=== PATIENT | female | born 1980 | race Caucasian/White ===

== ENCOUNTER 2016-11-30 16:10 | Emergency (ER) | payer OTHER ==
--- NOTE | 2016-11-30 16:47 | ED CLINICAL REPORT ---
Clinical Report - Physicians/Mid Levels [facility] [address] [place] [address] 11/30/2016 16:12 Patient: ROLANDO GARBER Time Seen: 16:21; upon arrival, initial patient contact, initial documentation, patient care assumed. Arrived- By private vehicle. Historian- patient. HISTORY OF PRESENT ILLNESS Chief Complaint: TENDER AREA. This started about 5 days ago and is still present. It has been located in the left axilla. No cause has been identified. (pt saw here pcp 11/28, has appt with oncologist Monday, here for US, would like imaging done today so she has films to take to specialist, her pcp scheduled her for us in December). Similar symptoms previously: Frequently, worse. ( had surgery and lymph nodes removed on ). Recent medical care: The patient was seen recently in the office. ( saw pcp, placed on abx and pain meds). REVIEW OF SYSTEMS No fever. All systems otherwise negative, except as recorded above. PAST HISTORY See nurses notes. PROBLEMS: Pyelonephritis. UTI - Urinary Tract Infection. Wound Infection. Headache. Abscess. Systemic Lupus Erythematosus. Hidradenitis Suppurativa. Ureterolithiasis. Lifestyle / Substance Problems. Fibromyalgia. Cervical Strain. Seizure Disorder. LNMP - Last Normal Menstrual Period. --16:31 Migdalia Herndon. ADDITIONAL SURGERIES: . Hysterectomy. Lithotripsy. Previous Abdominal Surgery. Sweat gland removal. Tubal Ligation. --16:31 Migdalia Herndon. SOCIAL HISTORY Light tobacco smoker. Occasional alcohol use. No drug use. No recent travel. Is a local resident. FAMILY HISTORY Cancer in first-degree relative (mother). ADDITIONAL NOTES The nursing notes have been reviewed with agreement regarding the chief complaint, HPI, ROS, PMH and patient medications and allergies. PHYSICAL EXAM Vital Signs: 11/30/2016 16:27 BP: 153/98. HR: 85. RR: 16. O2 saturation: 100%. Temp: 98.8 F. Have been reviewed as abnormal and appear to be correct. Hypertensive. Heart rate normal. Respiratory rate normal. Temperature normal. Oxygen saturation normal. Appearance: Alert. Oriented X3. No acute distress. Neck: Neck supple. (x2 pea size lymph nodes palpated to L axilla, no erythema, no swelling, no warmth, pt c/o of pain and tenderness). CVS: Normal heart rate and rhythm. Heart sounds normal. Respiratory: No respiratory distress. Breath sounds normal. Chest nontender. Skin: Skin warm and dry. Normal skin color. No rash. Normal skin turgor. Extremities: Normal external inspection. Extremities nontender. Neuro: Oriented X 3. No motor deficit. No sensory deficit. PROGRESS AND PROCEDURES Course of Care: 16:53 11/30/16. pt has ozzie for some narcs and #7 er visits, see report for full details. Patient counseled in person regarding the patient's stable condition and diagnosis. 16:47. Differential Diagnosis: Other possible considerations: abscess, suppuritiva, folliculitis, mrsa, lymphoma. Above considerations are based on history and physical exam. Differential diagnosis was discussed with patient. Disposition: Discharged home in good and unchanged condition (16:47). Condition: good and stable. CLINICAL IMPRESSION (Enlarged Lymph Nodes L Axilla). INSTRUCTIONS Warnings: GENERAL WARNINGS: Return or contact your physician immediately if your condition worsens or changes unexpectedly, if not improving as expected, or if other problems arise. Specifically return if problem worsens. Prescription Medications: [place] 5 mg / 325 mg tablets: take 1 orally every 6 hours as needed for pain. Dispense five (5). No refill. Follow-up: Follow up with an oncologist Monday as scheduled even if well. Summary of care provided to patient. Screening today revealed the patient's blood pressure to be in the hypertensive range. The patient should follow up with a primary care provider for blood pressure management. Understanding of the discharge instructions verbalized by patient. (Electronically signed by Elinor Dumas A.R.N.P. 11/30/2016 17:05)
--- NOTE | 2016-11-30 16:47 | ED NURSING NOTES ---
Clinical Report - Nurses [facility] [address], [place] [address] 11/30/2016 16:12 Patient: ROLANDO GARBER TRIAGE Triage time 1620. Acuity: LEVEL 3. Chief Complaint: RIGHT UPPER EXTREMITY PAIN and SWELLING. Alert. No acute distress. --16:32 Migdalia Herndon 16:27 11/30/16. BP: 153/98. HR: 85. RR: 16. O2 saturation: 100%. Temp: 98.8 F. Pain level now 05/25. --16:32 Migdalia Herndon. Weight: 75.7 kg. Height/Length: 63 inches. BMI: 29.6. --16:27 Migdalia Herndon. Medications Gabapentin Oral. --16:29 Migdalia Herndon Plaquenil Oral. --16:29 Migdalia Herndon OxyCODONE HCl Oral. --16:29 Migdalia Herndon Clindacin-P External. --16:30 Migdalia Herndon. Allergies Penicillin. --16:30 Migdalia Herndon Compazine. --16:30 Migdalia Herndon Ultram. --16:30 Migdalia Herndon Sulfa Antibiotics. --16:30 Migdalia Herndon. History Arrived by private vehicle. Historian: patient. Accompanied by friend. No injury occurred. This occurred (5 days ago). ( Pt with lumps in left armpit, pain, saw PCP, placed on anitbiotic and pain med, referred to oncology, pain swelling is worse and now in breast, PCP told pt to come in for imaging). 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 SOCIAL HX: Light tobacco smoker (cigarette)- less than 1/2 a pack per day. Occasional alcohol use. --16:32 Migdalia Herndon. PROBLEMS: Pyelonephritis. UTI - Urinary Tract Infection. Wound Infection. Headache. Abscess. Systemic Lupus Erythematosus. Hidradenitis Suppurativa. Ureterolithiasis. Lifestyle / Substance Problems. Fibromyalgia. Cervical Strain. Seizure Disorder. LNMP - Last Normal Menstrual Period. --16:31 Migdalia Herndon. ADDITIONAL SURGERIES: . Hysterectomy. Lithotripsy. Previous Abdominal Surgery. Sweat gland removal. Tubal Ligation. --16:31 Migdalia Herndon. Interventions ID band on patient. To treatment room. --16:32 Migdalia Herndon. PHYSICAL ASSESSMENT Ambulatory to room. GENERAL / NEURO / PSYCH: Oriented X 4. Alert. Acute distress is noted. Appears in pain. EXTREMITIES: Limited ROM present. Increased warmth on the extremities. Upper extremity edema. Neuro-vascular status intact to the extremity. SKIN: Skin intact. Skin is warm and dry. --16:33 Migdalia Herndon. NURSING PROGRESS NOTES 17:00. The patient is resting quietly. Overall patient status is the same- she states feels the same. GENERAL / NEURO / PSYCH: Alert. Oriented X 4. RESPIRATORY: No respiratory distress. SKIN: Skin is warm and dry. --17:03 Abigail Ng R.N. DISPOSITION / DISCHARGE Departure time: 1700. Condition at departure: unchanged. No learning barriers present. Discharge instructions provided and reviewed with the patient. Reviewed medication(s). Prescription(s) given to the patient. Patient verbalized understanding. Written instructions provided in Marshallese. The patient was discharged home and accompanied by service delivery analyst. She left the Emergency Department ambulatory and via private vehicle. FALL RISK ASSESSMENT: Fall risk assessment completed. No fall risk identified. --17:05 Abigail Ng R.N. 17:02 11/30/16. BP: 152/91. HR: 80. RR: 18. O2 saturation: 99% on room air. Pain level now: 05/25. --17:05 Abigail Ng R.N. Locked/Released at 11/30/2016 17:05 by Abigail Ng R.N.
--- NOTE | 2016-11-30 16:47 | ED NURSING NOTES ---
Clinical Report - Nurses [facility] [address], [place] [address] 11/30/2016 16:12 Patient: ROLANDO GARBER TRIAGE Triage time 1620. Acuity: LEVEL 3. Chief Complaint: RIGHT UPPER EXTREMITY PAIN and SWELLING. Alert. No acute distress. --16:32 Migdalia Herndon 16:27 11/30/16. BP: 153/98. HR: 85. RR: 16. O2 saturation: 100%. Temp: 98.8 F. Pain level now 05/25. --16:32 Migdalia Herndon. Weight: 75.7 kg. Height/Length: 63 inches. BMI: 29.6. --16:27 Migdalia Herndon. Medications Gabapentin Oral. --16:29 Migdalia Herndon Plaquenil Oral. --16:29 Migdalia Herndon OxyCODONE HCl Oral. --16:29 Migdalia Herndon Clindacin-P External. --16:30 Migdalia Herndon. Allergies Penicillin. --16:30 Migdalia Herndon Compazine. --16:30 Migdalia Herndon Ultram. --16:30 Migdalia Herndon Sulfa Antibiotics. --16:30 Migdalia Herndon. History Arrived by private vehicle. Historian: patient. Accompanied by friend. No injury occurred. This occurred (5 days ago). ( Pt with lumps in left armpit, pain, saw PCP, placed on anitbiotic and pain med, referred to oncology, pain swelling is worse and now in breast, PCP told pt to come in for imaging). Treatment PROPERTY AND EQUIPMENT CLERK: (clindamycin topical, oxycodone). SOCIAL HX: Light tobacco smoker (cigarette)- less than 1/2 a pack per day. Occasional alcohol use. --16:32 Migdalia Herndon. PROBLEMS: Pyelonephritis. UTI - Urinary Tract Infection. Wound Infection. Headache. Abscess. Systemic Lupus Erythematosus. Hidradenitis Suppurativa. Ureterolithiasis. Lifestyle / Substance Problems. Fibromyalgia. Cervical Strain. Seizure Disorder. LNMP - Last Normal Menstrual Period. --16:31 Migdalia Herndon. ADDITIONAL SURGERIES: . Hysterectomy. Lithotripsy. Previous Abdominal Surgery. Sweat gland removal. Tubal Ligation. --16:31 Migdalia Herndon. Interventions ID band on patient. To treatment room. --16:32 Migdalia Herndon. PHYSICAL ASSESSMENT Ambulatory to room. GENERAL / NEURO / PSYCH: Oriented X 4. Alert. Acute distress is noted. Appears in pain. EXTREMITIES: Limited ROM present. Increased warmth on the extremities. Upper extremity edema. Neuro-vascular status intact to the extremity. SKIN: Skin intact. Skin is warm and dry. --16:33 Migdalia Herndon. NURSING PROGRESS NOTES 17:00. The patient is resting quietly. Overall patient status is the same- she states feels the same. GENERAL / NEURO / PSYCH: Alert. Oriented X 4. RESPIRATORY: No respiratory distress. SKIN: Skin is warm and dry. --17:03 Abigail Ng R.N. DISPOSITION / DISCHARGE Departure time: 1700. Condition at departure: unchanged. No learning barriers present. Discharge instructions provided and reviewed with the patient. Reviewed medication(s). Prescription(s) given to the patient. Patient verbalized understanding. Written instructions provided in Turkish. The patient was discharged home and accompanied by data processor. She left the Emergency Department ambulatory and via private vehicle. FALL RISK ASSESSMENT: Fall risk assessment completed. No fall risk identified. --17:05 Abigail Ng R.N. 17:02 11/30/16. BP: 152/91. HR: 80. RR: 18. O2 saturation: 99% on room air. Pain level now: 05/25. --17:05 Abigail Ng R.N. Locked/Released at 11/30/2016 17:05 by Abigail Ng R.N.
--- NOTE | 2016-11-30 17:05 | ED MAR SUMMARY ---
..... Medication Administration Record [facility] [address] [place], [place] [id number] Patient: ROLANDO GARBER Visit ID: [id number] 36y, F Weight: 75.7 kg Height/Length: 63 in BMI: 29.6 ALLERGIES: Sulfa Antibiotics, Ultram, Compazine, Penicillin
--- NOTE | 2016-11-30 17:05 | ED MED RECONCILIATION SUMMARY ---
Patient: ROLANDO GARBER Medication Reconciliation Report [facility] VisitID: [id number] [address] [place] [address] 36y, F Registration Date/Time: 11/30/2016 Weight: 75.7 kg Height/Length: 63 in. BMI: 29.6 ALLERGIES: Compazine, Penicillin, Sulfa Antibiotics, Ultram The patient's Home Medications are listed below: THE FOLLOWING MEDICATIONS NEED TO BE RECONCILED: Clindacin-P External Gabapentin Oral OxyCODONE HCl Oral Plaquenil Oral The source(s) of the original Home Medication information: Not obtained. The following Medications were given to the patient in the Emergency Department: None. The following Medications were prescribed to the patient: [place] 5 mg / 325 mg tablets: take 1 orally every 6 hours as needed for pain. Dispense five (5). No refill. -- Elinor Dumas A.R.N.P.
--- NOTE | 2016-11-30 17:05 | ED DISCHARGE INSTRUCTIONS ---
Patient: ROLANDO GARBER General Instructions [facility] VisitID: [id number] [place] [address] 36y, F Registration Date/Time: 11/30/2016 (Enlarged Lymph Nodes L Axilla). INSTRUCTIONS Warnings: GENERAL WARNINGS: Return or contact your physician immediately if your condition worsens or changes unexpectedly, if not improving as expected, or if other problems arise. Specifically return if problem worsens. Prescription Medications: [place] 5 mg / 325 mg tablets: take 1 orally every 6 hours as needed for pain. Dispense five (5). No refill. Follow-up: Follow up with an oncologist Monday as scheduled even if well. Summary of care provided to patient. Screening today revealed the patient's blood pressure to be in the hypertensive range. The patient should follow up with a primary care provider for blood pressure management. Understanding of the discharge instructions verbalized by patient. ADDITIONAL INFORMATION Hydrocodone Bitartrate, Acetaminophen Oral tablet What is this medicine? ACETAMINOPHEN; HYDROCODONE (a set a GIL fady fen; lawrence droe KOE done) is a pain reliever. It is used to treat mild to moderate pain. How should I use this medicine? Take this medicine by mouth. Swallow it with a full glass of water. Follow the directions on the prescription label. If the medicine upsets your stomach, take the medicine with food or milk. Do not take more than you are told to take. Talk to your produce runner regarding the use of this medicine in children. This medicine is not approved for use in children. What side effects may I notice from receiving this medicine? Side effects that you should report to your doctor or health patient care director as soon as possible: allergic reactions like skin rash, itching or hives, swelling of the face, lips, or tongue breathing problems confusion feeling faint or lightheaded, falls stomach pain yellowing of the eyes or skin Side effects that usually do not require medical attention (report to your doctor or health patient care director if they continue or are bothersome): nausea, vomiting stomach upset What may interact with this medicine? alcohol antihistamines isoniazid medicines for depression, anxiety, or psychotic disturbances medicines for sleep muscle relaxants naltrexone narcotic medicines (opiates) for pain phenobarbital ritonavir tramadol What if I miss a dose? If you miss a dose, take it as soon as you can. If it is almost time for your next dose, take only that dose. Do not take double or extra doses. Where should I keep my medicine? Keep out of the reach of children. This medicine can be abused. Keep your medicine in a safe place to protect it from theft. Do not share this medicine with anyone. Selling or giving away this medicine is dangerous and against the law. Store at room temperature between 15 and 30 degrees C (59 and 86 degrees F). Protect from light. Keep container tightly closed. Throw away any unused medicine after the expiration date. Discard unused medicine and used packaging carefully. Pets and children can be harmed if they find used or lost packages. What should I tell my health care provider before I take this medicine? They need to know if you have any of these conditions: brain tumor Crohn's disease, inflammatory bowel disease, or ulcerative colitis drink more than 3 alcohol-containing drinks per day drug abuse or addiction head injury heart or circulation problems kidney disease or problems going to the bathroom liver disease lung disease, asthma, or breathing problems an unusual or allergic reaction to acetaminophen, hydrocodone, other opioid analgesics, other medicines, foods, dyes, or preservatives or trying to get breast-feeding What should I watch for while using this medicine? Tell your doctor or health patient care director if your pain does not go away, if it gets worse, or if you have new or a different type of pain. You may develop tolerance to the medicine. Tolerance means that you will need a higher dose of the medicine for pain relief. Tolerance is normal and is expected if you take the medicine for a long time. Do not suddenly stop taking your medicine because you may develop a severe reaction. Your body becomes used to the medicine. This does NOT mean you are addicted. Addiction is a behavior related to getting and using a drug for a non-medical reason. If you have pain, you have a medical reason to take pain medicine. Your doctor will tell you how much medicine to take. If your doctor wants you to stop the medicine, the dose will be slowly lowered over time to avoid any side effects. You may get drowsy or dizzy when you first start taking the medicine or change doses. Do not drive, use machinery, or do anything that may be dangerous until you know how the medicine affects you. Stand or sit up slowly. There are different types of narcotic medicines (opiates) for pain. If you take more than one type at the same time, you may have more side effects. Give your health care provider a list of all medicines you use. Your doctor will tell you how much medicine to take. Do not take more medicine than directed. Call emergency for help if you have problems breathing. The medicine will cause constipation. Try to have a bowel movement at least every 2 to 3 days. If you do not have a bowel movement for 3 days, call your doctor or health patient care director. Too much acetaminophen can be very dangerous. Do not take Tylenol (acetaminophen) or medicines that contain acetaminophen with this medicine. Many non-prescription medicines contain acetaminophen. Always read the labels carefully. You have been given the following additional information: Hydrocodone Bitartrate, Acetaminophen Oral tablet (Electronically signed by Elinor Dumas A.R.N.P. 11/30/2016 17:05)
--- NOTE | 2016-11-30 17:05 | ED MED RECONCILIATION SUMMARY ---
Patient: ROLANDO GARBER Medication Reconciliation Report [facility] VisitID: [id number] [address] [place] [address] 36y, F Registration Date/Time: 11/30/2016 Weight: 75.7 kg Height/Length: 63 in. BMI: 29.6 ALLERGIES: Compazine, Penicillin, Sulfa Antibiotics, Ultram The patient's Home Medications are listed below: THE FOLLOWING MEDICATIONS NEED TO BE RECONCILED: Clindacin-P External Gabapentin Oral OxyCODONE HCl Oral Plaquenil Oral The source(s) of the original Home Medication information: Not obtained. The following Medications were given to the patient in the Emergency Department: None. The following Medications were prescribed to the patient: [place] 5 mg / 325 mg tablets: take 1 orally every 6 hours as needed for pain. Dispense five (5). No refill. -- Elinor Dumas A.R.N.P.
--- NOTE | 2016-11-30 17:05 | ED DISCHARGE INSTRUCTIONS ---
Patient: ROLANDO GARBER General Instructions [facility] VisitID: [id number] [place] [address] 36y, F Registration Date/Time: 11/30/2016 (Enlarged Lymph Nodes L Axilla). INSTRUCTIONS Warnings: GENERAL WARNINGS: Return or contact your physician immediately if your condition worsens or changes unexpectedly, if not improving as expected, or if other problems arise. Specifically return if problem worsens. Prescription Medications: [place] 5 mg / 325 mg tablets: take 1 orally every 6 hours as needed for pain. Dispense five (5). No refill. Follow-up: Follow up with an oncologist Monday as scheduled even if well. Summary of care provided to patient. Screening today revealed the patient's blood pressure to be in the hypertensive range. The patient should follow up with a primary care provider for blood pressure management. Understanding of the discharge instructions verbalized by patient. ADDITIONAL INFORMATION Hydrocodone Bitartrate, Acetaminophen Oral tablet What is this medicine? ACETAMINOPHEN; HYDROCODONE (a set a GIL fady fen; lawrence droe KOE done) is a pain reliever. It is used to treat mild to moderate pain. How should I use this medicine? Take this medicine by mouth. Swallow it with a full glass of water. Follow the directions on the prescription label. If the medicine upsets your stomach, take the medicine with food or milk. Do not take more than you are told to take. Talk to your host/hostess ground regarding the use of this medicine in children. This medicine is not approved for use in children. What side effects may I notice from receiving this medicine? Side effects that you should report to your doctor or health care services manager as soon as possible: allergic reactions like skin rash, itching or hives, swelling of the face, lips, or tongue breathing problems confusion feeling faint or lightheaded, falls stomach pain yellowing of the eyes or skin Side effects that usually do not require medical attention (report to your doctor or health care services manager if they continue or are bothersome): nausea, vomiting stomach upset What may interact with this medicine? alcohol antihistamines isoniazid medicines for depression, anxiety, or psychotic disturbances medicines for sleep muscle relaxants naltrexone narcotic medicines (opiates) for pain phenobarbital ritonavir tramadol What if I miss a dose? If you miss a dose, take it as soon as you can. If it is almost time for your next dose, take only that dose. Do not take double or extra doses. Where should I keep my medicine? Keep out of the reach of children. This medicine can be abused. Keep your medicine in a safe place to protect it from theft. Do not share this medicine with anyone. Selling or giving away this medicine is dangerous and against the law. Store at room temperature between 15 and 30 degrees C (59 and 86 degrees F). Protect from light. Keep container tightly closed. Throw away any unused medicine after the expiration date. Discard unused medicine and used packaging carefully. Pets and children can be harmed if they find used or lost packages. What should I tell my health care provider before I take this medicine? They need to know if you have any of these conditions: brain tumor Crohn's disease, inflammatory bowel disease, or ulcerative colitis drink more than 3 alcohol-containing drinks per day drug abuse or addiction head injury heart or circulation problems kidney disease or problems going to the bathroom liver disease lung disease, asthma, or breathing problems an unusual or allergic reaction to acetaminophen, hydrocodone, other opioid analgesics, other medicines, foods, dyes, or preservatives or trying to get breast-feeding What should I watch for while using this medicine? Tell your doctor or health care services manager if your pain does not go away, if it gets worse, or if you have new or a different type of pain. You may develop tolerance to the medicine. Tolerance means that you will need a higher dose of the medicine for pain relief. Tolerance is normal and is expected if you take the medicine for a long time. Do not suddenly stop taking your medicine because you may develop a severe reaction. Your body becomes used to the medicine. This does NOT mean you are addicted. Addiction is a behavior related to getting and using a drug for a non-medical reason. If you have pain, you have a medical reason to take pain medicine. Your doctor will tell you how much medicine to take. If your doctor wants you to stop the medicine, the dose will be slowly lowered over time to avoid any side effects. You may get drowsy or dizzy when you first start taking the medicine or change doses. Do not drive, use machinery, or do anything that may be dangerous until you know how the medicine affects you. Stand or sit up slowly. There are different types of narcotic medicines (opiates) for pain. If you take more than one type at the same time, you may have more side effects. Give your health care provider a list of all medicines you use. Your doctor will tell you how much medicine to take. Do not take more medicine than directed. Call emergency for help if you have problems breathing. The medicine will cause constipation. Try to have a bowel movement at least every 2 to 3 days. If you do not have a bowel movement for 3 days, call your doctor or health care services manager. Too much acetaminophen can be very dangerous. Do not take Tylenol (acetaminophen) or medicines that contain acetaminophen with this medicine. Many non-prescription medicines contain acetaminophen. Always read the labels carefully. You have been given the following additional information: Hydrocodone Bitartrate, Acetaminophen Oral tablet (Electronically signed by Elinor Dumas A.R.N.P. 11/30/2016 17:05)
--- NOTE | 2016-11-30 17:05 | ED MAR SUMMARY ---
..... Medication Administration Record [facility] [address] [place] [id number] Patient: ROLANDO GARBER Visit ID: [id number] 36y, F Weight: 75.7 kg Height/Length: 63 in BMI: 29.6 ALLERGIES: Sulfa Antibiotics, Ultram, Compazine, Penicillin
== END 2016-11-30 17:00 | disposition home or self-care (01) ==
LOC: ED SRH 16:10
DX: R59.0 Localized enlarged lymph nodes (principal); F17.210 Nicotine dependence, cigarettes, uncomplicated; Z88.0 Allergy status to penicillin; Z88.2 Allergy status to sulfonamides; Z88.8 Allergy status to other drugs, medicaments and biological substances

== ENCOUNTER 2016-12-15 01:57 | Emergency (ER) | payer OTHER ==
--- NOTE | 2016-12-15 03:15 | ED NURSING NOTES ---
Clinical Report - Nurses [facility] [address] [place] [place] [address] 12/15/2016 1:57 [id number] Triage time 02:Dec 15 2016. Chief Complaint: LACERATION. SEPSIS SCREEN: Sepsis Screen: negative. Negative (no infection suspected/documented). Heart rate greater than 90. RANJAN COMA SCORE: [place] Coma Scale: 15- eyes open spontaneously (4); best verbal response- oriented x 4 (5); best motor response- obeys commands (6). --02:12 AliM 02:01 12/15/16. BP: 120/85. HR: 96. RR: 20. O2 saturation: 98% on room air. Temp: 98.4 F (oral). Pain level now: 03/25. --02:12 AliM. Weight: 75.7 kg stated. Height/Length: 62 inches Per Patient. BMI: 30.6. --02:12 AliM. Medications Wieirdxukq-HFYK-Usre-Cod Oral. --02:05 AliM Zofran Oral. --02:06 AliM Gabapentin Oral. --02:06 AliM Ranitidine HCl Oral. --02:07 AliM Omeprazole Oral. --02:07 AliM Naratriptan HCl Oral. --02:07 AliM. Allergies Penicillin. --02:05 AliM Sulfa Antibiotics. --02:05 AliM Ibuprofen. --02:05 AliM Aspirin. --02:05 AliM. History Arrived by EMS. Historian: patient. Unaccompanied. Primary physician (Malick). ( Laceration to right forearm). Location of injuries: right forearm. This occurred just prior to arrival. Occurred at home. ( Pt stated she scratched her right forearm on a nail on a doorframe an hour prior to arrival. Last tetanus +10 years ago.). No numbness or weakness. Treatment CUSTOMER SALES ADVISOR: Ice. Trauma activation: Pre-hospital notification of patient arrival was received. PAST MEDICAL HX: Tetanus status: more than 5 years ago. Immunizations: up-to-date. Last normal menstrual period- Jul 2015. Has had a hysterectomy. SOCIAL HX: Heavy tobacco smoker (cigarette)- 1 pack per day. Occasional alcohol use. No drug use. No infectious disease exposure. ABUSE ASSESSMENT: No report of abuse. FALL RISK ASSESSMENT: Fall risk assessment completed. No fall risk identified. NUTRITIONAL RISK ASSESSMENT: The nutritional risk assessment revealed no deficiencies. FUNCTIONAL ASSESSMENT: Functional assessment: no impairments noted. LEARNING NEEDS ASSESSMENT: The learning needs assessment revealed no barriers. SKIN INTEGRITY ASSESSMENT: Skin integrity risk assessment completed. No skin integrity risk identified. --02:12 AliM Treatment CUSTOMER SALES ADVISOR: EMS treatment CUSTOMER SALES ADVISOR verbally communicated. BP: 120/82. HR: 72. --02:16 AliM. PROBLEMS: Sprain. Abdominal Pain. Pyelonephritis. UTI - Urinary Tract Infection. Tetanus Status. Wound Infection. Headache. Abscess. Systemic Lupus Erythematosus. Hidradenitis Suppurativa. Ureterolithiasis. Lifestyle / Substance Problems. Fibromyalgia. Lupus. Seizure. Cervical Strain. Seizure Disorder. Immunizations. LNMP - Last Normal Menstrual Period. --02:08 AliM. ADDITIONAL SURGERIES: . Hysterectomy. Lithotripsy. Previous Abdominal Surgery. Sweat gland removal. --02:08 AliM. Interventions ID band on patient. To treatment room. --02:12 AliM. PHYSICAL ASSESSMENT To room via stretcher. GENERAL / NEURO / PSYCH: Alert. Oriented X 4. Appears in no acute distress. HEENT: Head non-tender. RESPIRATORY: Respirations not labored. CVS: Capillary refill less than 2 seconds. EXTREMITIES: Extremities exhibit normal ROM. Neuro-vascular status intact to the extremity. SKIN: Skin is warm and dry. Skin not intact. ( Approx. 2in laceration on right forearm, bleeding controlled, approx 1/8 wide. No swelling or ecchymosis assessed.). --02:15 AliM. NURSING PROGRESS NOTES The plan of care for this patient has been created. Cold pack applied. Extremity elevated. Reassurance given. Call light placed in reach. Side rails up x 1. Bed placed in lowest position. Brakes of bed on. Patient ready for evaluation- ED physician notified. --02:15 AliM Wound cleansed with sterile water and chlorhexidine (Cotton balls soaked with LET applied.). --02:56 AliM 02:33 12/15/2016 TDAP IM 0.5 mL given. (Lot#: [id number], expiration date: 07/20/2018, Mechanical Meter Tester: sanofi pasteur). Given in the right deltoid. Allergies verified and confirmed 5 rights. Vaccine information statement provided to the patient. --02:58 AliM 02:52 12/15/2016 LET Topical Topical Solution 1 application. Placed on a cotton ball. Allergies verified and confirmed 5 rights. (Pt securing cotton balls with fingers.). --02:57 AliM WOUND REPAIR: Wound repair performed by ED physician. The wound is linear. Preparation. Wound cleansed per nurse with Hibiclens. Procedure: wound repaired with Dermabond. Post-procedure: she was stable, no complications and bleeding controlled. --03:12 Rosalie Corado. DISPOSITION / DISCHARGE Condition at departure: improved and stable. No learning barriers present. Discharge instructions provided and reviewed with the patient. Patient verbalized understanding. Written instructions provided in Maori. ( Taught pt to keep laceration clean and dry. Taught pt S/S of infection: purulent drainage, worsening pain or redness.). The patient was discharged by the physician. She was discharged home and unaccompanied at time of discharge. She left the Emergency Department ambulatory and via private vehicle. Patient driving. FALL RISK ASSESSMENT: Fall risk assessment completed. No fall risk identified. --03:28 Pantera 03:25 12/15/16. BP: deferred. HR: 88. RR: 16 (regular, unlabored and normal). O2 saturation: 95% on room air. Temp: 98.3 F (oral). Pain level now: 7/10. Additional comments: Pt did not BP taken. --03:28 Pantera ( Charting reviewed by writing RN). --03:30 Rosalie Corado. Locked/Released at 12/15/2016 3:31 by Rosalie Corado,
--- NOTE | 2016-12-15 03:15 | ED ORDER SUMMARY ---
..... Patient: ROLANDO GARBER OrderSheet [facility] VisitID: [id number] [address] [place] [place] [address] 36y, F Registration Date/Time: 12/15/2016 ORDER SHEET Weight: 75.7 kg (stated) Allergies: Penicillin, Sulfa Antibiotics, Ibuprofen, Aspirin GENERAL ORDERS: MEDICATION ORDERS: LET Topical 1 application (NOW) (02:55 12/15/2016 HSoule verbal order read back to Gita MCKINLEY) (2:57 AMcKenna) Tdap IM 0.5 mL (NOW, per protocol) (02:56 12/15/2016 HSoule verbal order read back to Gita MCKINLEY) (2:58 AMcKenna) IV FLUIDS: ORDER SHEET NOTES: [Electronically signed by Rosalie Corado (03:31 12/15/2016)] [Electronically signed by Steve Murry MD (09:12/16/2016)] [Electronically locked/signed by Rosalie Corado (03:12/15/2016)]
--- NOTE | 2016-12-15 03:15 | ED NURSING NOTES ---
Clinical Report - Nurses [facility] [address] [place] [address] 12/15/2016 1:57 [id number] Triage time 02:Dec 15 2016. Chief Complaint: LACERATION. SEPSIS SCREEN: Sepsis Screen: negative. Negative (no infection suspected/documented). Heart rate greater than 90. RANJAN COMA SCORE: [place] Coma Scale: 15- eyes open spontaneously (4); best verbal response- oriented x 4 (5); best motor response- obeys commands (6). --02:12 AliM 02:01 12/15/16. BP: 120/85. HR: 96. RR: 20. O2 saturation: 98% on room air. Temp: 98.4 F (oral). Pain level now: 03/25. --02:12 AliM. Weight: 75.7 kg stated. Height/Length: 62 inches Per Patient. BMI: 30.6. --02:12 AliM. Medications Wanjykrvwb-MHGW-Lnes-Cod Oral. --02:05 AliM Zofran Oral. --02:06 AliM Gabapentin Oral. --02:06 AliM Ranitidine HCl Oral. --02:07 AliM Omeprazole Oral. --02:07 AliM Naratriptan HCl Oral. --02:07 AliM. Allergies Penicillin. --02:05 AliM Sulfa Antibiotics. --02:05 AliM Ibuprofen. --02:05 AliM Aspirin. --02:05 AliM. History Arrived by EMS. Historian: patient. Unaccompanied. Primary physician (Malick). ( Laceration to right forearm). Location of injuries: right forearm. This occurred just prior to arrival. Occurred at home. ( Pt stated she scratched her right forearm on a nail on a doorframe an hour prior to arrival. Last tetanus +10 years ago.). No numbness or weakness. Treatment RAW SAMPLER: Ice. Trauma activation: Pre-hospital notification of patient arrival was received. PAST MEDICAL HX: Tetanus status: more than 5 years ago. Immunizations: up-to-date. Last normal menstrual period- Jul 2015. Has had a hysterectomy. SOCIAL HX: Heavy tobacco smoker (cigarette)- 1 pack per day. Occasional alcohol use. No drug use. No infectious disease exposure. ABUSE ASSESSMENT: No report of abuse. FALL RISK ASSESSMENT: Fall risk assessment completed. No fall risk identified. NUTRITIONAL RISK ASSESSMENT: The nutritional risk assessment revealed no deficiencies. FUNCTIONAL ASSESSMENT: Functional assessment: no impairments noted. LEARNING NEEDS ASSESSMENT: The learning needs assessment revealed no barriers. SKIN INTEGRITY ASSESSMENT: Skin integrity risk assessment completed. No skin integrity risk identified. --02:12 AliM Treatment RAW SAMPLER: EMS treatment RAW SAMPLER verbally communicated. BP: 120/82. HR: 72. --02:16 AliM. PROBLEMS: Sprain. Abdominal Pain. Pyelonephritis. UTI - Urinary Tract Infection. Tetanus Status. Wound Infection. Headache. Abscess. Systemic Lupus Erythematosus. Hidradenitis Suppurativa. Ureterolithiasis. Lifestyle / Substance Problems. Fibromyalgia. Lupus. Seizure. Cervical Strain. Seizure Disorder. Immunizations. LNMP - Last Normal Menstrual Period. --02:08 AliM. ADDITIONAL SURGERIES: . Hysterectomy. Lithotripsy. Previous Abdominal Surgery. Sweat gland removal. --02:08 AliM. Interventions ID band on patient. To treatment room. --02:12 AliM. PHYSICAL ASSESSMENT To room via stretcher. GENERAL / NEURO / PSYCH: Alert. Oriented X 4. Appears in no acute distress. HEENT: Head non-tender. RESPIRATORY: Respirations not labored. CVS: Capillary refill less than 2 seconds. EXTREMITIES: Extremities exhibit normal ROM. Neuro-vascular status intact to the extremity. SKIN: Skin is warm and dry. Skin not intact. ( Approx. 2in laceration on right forearm, bleeding controlled, approx 1/8 wide. No swelling or ecchymosis assessed.). --02:15 AliM. NURSING PROGRESS NOTES The plan of care for this patient has been created. Cold pack applied. Extremity elevated. Reassurance given. Call light placed in reach. Side rails up x 1. Bed placed in lowest position. Brakes of bed on. Patient ready for evaluation- ED physician notified. --02:15 AliM Wound cleansed with sterile water and chlorhexidine (Cotton balls soaked with LET applied.). --02:56 AliM 02:33 12/15/2016 TDAP IM 0.5 mL given. (Lot#: [id number], expiration date: 07/20/2018, Green Feed Attendant: sanofi pasteur). Given in the right deltoid. Allergies verified and confirmed 5 rights. Vaccine information statement provided to the patient. --02:58 AliM 02:52 12/15/2016 LET Topical Topical Solution 1 application. Placed on a cotton ball. Allergies verified and confirmed 5 rights. (Pt securing cotton balls with fingers.). --02:57 AliM WOUND REPAIR: Wound repair performed by ED physician. The wound is linear. Preparation. Wound cleansed per nurse with Hibiclens. Procedure: wound repaired with Dermabond. Post-procedure: she was stable, no complications and bleeding controlled. --03:12 Rosalie Corado. DISPOSITION / DISCHARGE Condition at departure: improved and stable. No learning barriers present. Discharge instructions provided and reviewed with the patient. Patient verbalized understanding. Written instructions provided in Bulgarian. ( Taught pt to keep laceration clean and dry. Taught pt S/S of infection: purulent drainage, worsening pain or redness.). The patient was discharged by the physician. She was discharged home and unaccompanied at time of discharge. She left the Emergency Department ambulatory and via private vehicle. Patient driving. FALL RISK ASSESSMENT: Fall risk assessment completed. No fall risk identified. --03:28 Pantera 03:25 12/15/16. BP: deferred. HR: 88. RR: 16 (regular, unlabored and normal). O2 saturation: 95% on room air. Temp: 98.3 F (oral). Pain level now: 7/10. Additional comments: Pt did not BP taken. --03:28 Pantera ( Charting reviewed by writing RN). --03:30 Rosalie Corado. Locked/Released at 12/15/2016 3:31 by Rosalie Corado,
--- NOTE | 2016-12-15 03:15 | ED ORDER SUMMARY ---
..... Patient: ROLANDO GARBER OrderSheet [facility] VisitID: [id number] [address] [place] [place] [address] 36y, F Registration Date/Time: 12/15/2016 ORDER SHEET Weight: 75.7 kg (stated) Allergies: Penicillin, Sulfa Antibiotics, Ibuprofen, Aspirin GENERAL ORDERS: MEDICATION ORDERS: LET Topical 1 application (NOW) (02:55 12/15/2016 HSoule verbal order read back to Gita MCKINLEY) (2:57 AMcKenna) Tdap IM 0.5 mL (NOW, per protocol) (02:56 12/15/2016 HSoule verbal order read back to Gita MCKINLEY) (2:58 AMcKenna) IV FLUIDS: ORDER SHEET NOTES: [Electronically signed by Rosalie Corado (03:31 12/15/2016)] [Electronically signed by Steve Murry MD (09:12/16/2016)] [Electronically locked/signed by Rosalie Corado (03:12/15/2016)]
--- NOTE | 2016-12-15 03:15 | ED CLINICAL REPORT ---
Clinical Report - Physicians/Mid Levels [facility] [address] [place] [address] 12/15/2016 1:57 [id number] Time Seen: 02:23. Arrived- By private vehicle. Historian- patient. HISTORY OF PRESENT ILLNESS Chief Complaint: Injury to right forearm. The injury happened just prior to arrival. The patient sustained a laceration from a sharp edge (she scratched her right forearm on a nail on a doorframe an hour prior to arrival.). Occurred at home. Patient is experiencing moderate pain. No other injury. REVIEW OF SYSTEMS The patient sustained a single laceration to the right forearm. No swelling, tingling, numbness, weakness or suspected foreign body. All systems otherwise negative, except as recorded above. PAST HISTORY The patient's dominant hand is the right. Tetanus immunization status is unknown. SOCIAL HISTORY Current every day heavy tobacco smoker (cigarette)- 1 pack per day. Occasional alcohol use. No drug use. FAMILY HISTORY No significant family medical history. ADDITIONAL NOTES The nursing notes have been reviewed. PHYSICAL EXAM Vital Signs: 12/15/2016 02:01 BP: 120/85. HR: 96. RR: 20. O2 saturation: 98%. Temp: 98.4 F. Pain level now: 6/10. Have been reviewed. Appearance: Alert. No acute distress. Head: Head atraumatic. Eyes: Pupils equal, round and reactive to light. ENT: Pharynx normal. Neck: Normal inspection. Neck supple. CVS: Normal heart rate and rhythm. Heart sounds normal. Respiratory: No respiratory distress. Breath sounds normal. Abdomen: No visible injury. Back: Normal inspection. Skin: Skin warm and dry. Normal skin color. Normal skin turgor. Extremities: Right forearm: subcutaneous 2.5 cm laceration. Neurovascular intact distally. Extremities otherwise negative. Neuro, Vascular and Tendons: Vascular status intact. Sensation intact. Motor intact. Tendon function intact. Neuro: No motor deficit. No sensory deficit. PROGRESS AND PROCEDURES Laceration Repair: Location: right forearm. Time-out completed immediately before the procedure. Length: 2.5cm. Complexity: simple (closed with tissue adhesive). Wound depth/shape- subcutaneous and linear. Distal neuro/vascular/tendon status normal. Anesthesia provided using LET. Prepped with Hibiclens. Wound explored, cleansed and examined to the base in bloodless field. Closure of superficial layer. Skin adhesive used. Post-procedure: there are no complications. Bleeding is controlled. Tetanus immunization given. Course of Care: Patient is stable. Patient/family counseled. Old medical records reviewed. Disposition: Discharged. Condition: stable. CLINICAL IMPRESSION Single superficial laceration to the right forearm. INSTRUCTIONS Limit use of your right hand for two weeks. Warnings: COMPLICATIONS: Complications from this condition include: possible infection, possible foreign body remaining in the wound and possible injury to a nerve. Future problems may include infection, scarring and pain. INFECTION: Watch for signs of infection (increasing heat and redness, pus-like drainage, swelling, or increased pain). Return or see your doctor if these signs occur. TETANUS: You were given a tetanus shot during your visit. Make a note for future reference. GENERAL WARNINGS: Return or contact your physician immediately if your condition worsens or changes unexpectedly, if not improving as expected, or if other problems arise. Follow-up: Follow up with your doctor as needed. Understanding of the discharge instructions verbalized by patient. (Electronically signed by Steve Murry MD 12/16/2016 9:31)
--- NOTE | 2016-12-15 03:15 | ED CLINICAL REPORT ---
Clinical Report - Physicians/Mid Levels [facility] [address] [place] [address] 12/15/2016 1:57 [id number] Time Seen: 02:23. Arrived- By private vehicle. Historian- patient. HISTORY OF PRESENT ILLNESS Chief Complaint: Injury to right forearm. The injury happened just prior to arrival. The patient sustained a laceration from a sharp edge (she scratched her right forearm on a nail on a doorframe an hour prior to arrival.). Occurred at home. Patient is experiencing moderate pain. No other injury. REVIEW OF SYSTEMS The patient sustained a single laceration to the right forearm. No swelling, tingling, numbness, weakness or suspected foreign body. All systems otherwise negative, except as recorded above. PAST HISTORY The patient's dominant hand is the right. Tetanus immunization status is unknown. SOCIAL HISTORY Current every day heavy tobacco smoker (cigarette)- 1 pack per day. Occasional alcohol use. No drug use. FAMILY HISTORY No significant family medical history. ADDITIONAL NOTES The nursing notes have been reviewed. PHYSICAL EXAM Vital Signs: 12/15/2016 02:01 BP: 120/85. HR: 96. RR: 20. O2 saturation: 98%. Temp: 98.4 F. Pain level now: 6/10. Have been reviewed. Appearance: Alert. No acute distress. Head: Head atraumatic. Eyes: Pupils equal, round and reactive to light. ENT: Pharynx normal. Neck: Normal inspection. Neck supple. CVS: Normal heart rate and rhythm. Heart sounds normal. Respiratory: No respiratory distress. Breath sounds normal. Abdomen: No visible injury. Back: Normal inspection. Skin: Skin warm and dry. Normal skin color. Normal skin turgor. Extremities: Right forearm: subcutaneous 2.5 cm laceration. Neurovascular intact distally. Extremities otherwise negative. Neuro, Vascular and Tendons: Vascular status intact. Sensation intact. Motor intact. Tendon function intact. Neuro: No motor deficit. No sensory deficit. PROGRESS AND PROCEDURES Laceration Repair: Location: right forearm. Time-out completed immediately before the procedure. Length: 2.5cm. Complexity: simple (closed with tissue adhesive). Wound depth/shape- subcutaneous and linear. Distal neuro/vascular/tendon status normal. Anesthesia provided using LET. Prepped with Hibiclens. Wound explored, cleansed and examined to the base in bloodless field. Closure of superficial layer. Skin adhesive used. Post-procedure: there are no complications. Bleeding is controlled. Tetanus immunization given. Course of Care: Patient is stable. Patient/family counseled. Old medical records reviewed. Disposition: Discharged. Condition: stable. CLINICAL IMPRESSION Single superficial laceration to the right forearm. INSTRUCTIONS Limit use of your right hand for two weeks. Warnings: COMPLICATIONS: Complications from this condition include: possible infection, possible foreign body remaining in the wound and possible injury to a nerve. Future problems may include infection, scarring and pain. INFECTION: Watch for signs of infection (increasing heat and redness, pus-like drainage, swelling, or increased pain). Return or see your doctor if these signs occur. TETANUS: You were given a tetanus shot during your visit. Make a note for future reference. GENERAL WARNINGS: Return or contact your physician immediately if your condition worsens or changes unexpectedly, if not improving as expected, or if other problems arise. Follow-up: Follow up with your doctor as needed. Understanding of the discharge instructions verbalized by patient. (Electronically signed by Steve Murry MD 12/16/2016 9:31)
--- NOTE | 2016-12-16 09:31 | ED MED RECONCILIATION SUMMARY ---
Patient: ROLANDO GARBER Medication Reconciliation Report [facility] VisitID: [id number] [address] [place] [address] 36y, F Registration Date/Time: 12/15/2016 Weight: 75.7 kg Height/Length: 62 in. BMI: 30.6 ALLERGIES: Aspirin, Ibuprofen, Penicillin, Sulfa Antibiotics The patient's Home Medications are listed below: THE FOLLOWING MEDICATIONS NEED TO BE RECONCILED: [id number]-Bhgm-Cod Oral Gabapentin Oral Naratriptan HCl Oral Omeprazole Oral Ranitidine HCl Oral Zofran Oral The source(s) of the original Home Medication information: Not obtained. The following Medications were given to the patient in the Emergency Department: LET [Topical] Topical 1 application, administered: 12/15/2016 2:52:00 AM TDAP [IM] IM 0.5 mL, administered: 12/15/2016 2:33:00 AM The following Medications were prescribed to the patient: None.
--- NOTE | 2016-12-16 09:31 | ED MED RECONCILIATION SUMMARY ---
Patient: ROLANDO GARBER Medication Reconciliation Report [facility] VisitID: [id number] [address] [place] [address] 36y, F Registration Date/Time: 12/15/2016 Weight: 75.7 kg Height/Length: 62 in. BMI: 30.6 ALLERGIES: Aspirin, Ibuprofen, Penicillin, Sulfa Antibiotics The patient's Home Medications are listed below: THE FOLLOWING MEDICATIONS NEED TO BE RECONCILED: Kpjapshmfr-BGES-Vljy-Cod Oral Gabapentin Oral Naratriptan HCl Oral Omeprazole Oral Ranitidine HCl Oral Zofran Oral The source(s) of the original Home Medication information: Not obtained. The following Medications were given to the patient in the Emergency Department: LET [Topical] Topical 1 application, administered: 12/15/2016 2:52:00 AM TDAP [IM] IM 0.5 mL, administered: 12/15/2016 2:33:00 AM The following Medications were prescribed to the patient: None.
--- NOTE | 2016-12-16 09:31 | ED MAR SUMMARY ---
..... Medication Administration Record [facility] [address] [place] [address] Patient: ROLANDO GARBER Visit ID: [id number] 36y, F Weight: 75.7 kg Height/Length: 62 in BMI: 30.6 ALLERGIES: Aspirin, Ibuprofen, Sulfa Antibiotics, Penicillin Given 02:33 12/15/2016 AliM, Medication Administered: TDAP [IM], Dose: 0.5 mL IM. Medication Ordered: Tdap IM 0.5 mL (NOW, per protocol). Given 02:52 12/15/2016 AliM, Medication Administered: LET [TOPICAL], Dose: 1 application Topical Solution Topical. Medication Ordered: LET Topical 1 application (NOW).
--- NOTE | 2016-12-16 09:31 | ED MAR SUMMARY ---
..... Medication Administration Record [facility] [address] [place] [address] Patient: ROLANDO GARBER Visit ID: [id number] 36y, F Weight: 75.7 kg Height/Length: 62 in BMI: 30.6 ALLERGIES: Aspirin, Ibuprofen, Sulfa Antibiotics, Penicillin Given 02:33 12/15/2016 AliM, Medication Administered: TDAP [IM], Dose: 0.5 mL IM. Medication Ordered: Tdap IM 0.5 mL (NOW, per protocol). Given 02:52 12/15/2016 AliM, Medication Administered: LET [TOPICAL], Dose: 1 application Topical Solution Topical. Medication Ordered: LET Topical 1 application (NOW).
--- NOTE | 2016-12-16 09:31 | ED DISCHARGE INSTRUCTIONS ---
Patient: ROLANDO GARBER General Instructions [facility] VisitID: [id number] [place] [address] 36y, F Registration Date/Time: 12/15/2016 Single superficial laceration to the right forearm. INSTRUCTIONS Limit use of your right hand for two weeks. Warnings: COMPLICATIONS: Complications from this condition include: possible infection, possible foreign body remaining in the wound and possible injury to a nerve. Future problems may include infection, scarring and pain. INFECTION: Watch for signs of infection (increasing heat and redness, pus-like drainage, swelling, or increased pain). Return or see your doctor if these signs occur. TETANUS: You were given a tetanus shot during your visit. Make a note for future reference. GENERAL WARNINGS: Return or contact your physician immediately if your condition worsens or changes unexpectedly, if not improving as expected, or if other problems arise. Follow-up: Follow up with your doctor as needed. Understanding of the discharge instructions verbalized by patient. ADDITIONAL INFORMATION Laceration, Extremity (Sutures, Roxana, Or Tape) A laceration is a cut through the skin. This will usually require stitches (sutures) or roxana if it is deep. Minor cuts may be treated with surgical tape closures. Home care The following guidelines will help you care for your laceration at home: Keep the wound clean and dry. If a bandage was applied and it becomes wet or dirty, replace it. Otherwise, leave it in place for the first 24 hours, then change it once a day or as directed. If stitches or roxana were used, clean the wound daily: After removing the bandage, wash the area with soap and water. Use a wet cotton swab to loosen and remove any blood or crust that forms. After cleaning, keep the wound clean and dry. Talk with your doctor before applying any antibiotic ointment to the wound. Reapply the bandage. You may remove the bandage to shower as usual after the first 24 hours, but do not soak the area in water (no swimming) until the stitches or roxana are removed. If surgical tape closures were used, keep the area clean and dry. If it becomes wet, blot it dry with a towel. The doctor may prescribe an antibiotic cream or ointment to prevent infection. Do not stop taking this medication until you have finished the prescribed course or the doctor tells you to stop. The doctor may also prescribe medications for pain. Follow the doctors instructions for taking these medications. If you have chronic liver or kidney disease or ever had a stomach ulcer or GI bleeding, talk with your doctor before using these medicines. Follow-up care Follow up with your health care provider. Most skin wounds heal within ten days. However, an infection may sometimes occur despite proper treatment. Therefore, check the wound daily for the signs of infection listed below. Stitches and roxana should be removed within 714 days. If surgical tape closures were used, you may remove them after 10 days, if they have not fallen off by then. Notify your doctor if you notice persistent numbness or weakness in the injured extremity. (Note:A radiologist will review any X-rays that were taken. We will notify you of any new findings that may affect your care.) When to seek medical care Get prompt medical attention if any of these occur: Increasing pain in the wound Redness, swelling, or pus coming from the wound Fever of 100.4F (38C) or higher, or as directed by your health care provider If stitches or roxana come apart or fall out before your next appointment If the surgical tape closures fall off within seven days, or the wound edges re-open Bleeding not controlled by direct pressure Laceration(Skin Glue) A laceration is a cut through the skin. You have a laceration that has been closed with a type of skin glue. Home Care Medications: Acetaminophen (Tylenol) or ibuprofen (Motrin, Advil) may be taken for pain, unless another pain medicine was prescribed. NOTE: If you have chronic liver or kidney disease or ever had a stomach ulcer or GI bleeding, talk with your doctor before using these medications. General Care: Keep the wound clean and dry. You may shower or bathe as usual, but do not use soaps, lotions, or ointments on the wound area. Do not scrub the wound. After bathing, pat the wound dry with a soft towel. If a bandage was applied and it becomes wet or dirty, replace it. Otherwise, change the bandage every 24 hours. Do not scratch, rub, or pick at the film. Do not place tape directly over the film. Do not apply liquids (such as peroxide), ointments, or creams to the wound while the film is in place. Most skin wounds heal without problems. However, an infection sometimes occurs despite proper treatment. Therefore, watch for the signs of infection listed below. Follow Up as directed by the doctor or our staff. The skin glue film will fall off naturally in 5 to 10 days. Get Prompt Medical Attention if any of the following occur: Signs of infection: Fever of 100.4F (38C) or higher, or as directed by your healthcare provider Increasing pain in the wound Increasing redness or swelling Pus coming from the wound Wound bleeds more than a small amount or bleeding doesnt stop Wound edges come apart You feel numbness or weakness in the wound area that doesnt go away Diphtheria Toxoid Adsorbed, Pertussis Vaccine, Acellular (Adsorbed), Tetanus Toxoid, Adsorbed Suspension for injection What is this medicine? DIPHTHERIA and TETANUS TOXOIDS; PERTUSSIS VACCINE (dif THEER ee uh and TET n us TOK soids; per TUS iss vak SEEN) is used to prevent diphtheria, tetanus, and pertussis infections. How should I use this medicine? This vaccine is for injection into a muscle. It is given by a health ambulatory care coordinator. A copy of Vaccine Information Statements will be given before each vaccination. Read this sheet carefully each time. The sheet may change frequently. Talk to your brim edge trimmer regarding the use of this vaccine in children. While the DTP vaccine may be given to children ages 6 weeks to 7 years and the Tdap vaccine may be given to children at least 10 years old, precautions do apply. What side effects may I notice from receiving this medicine? Side effects that you should report to your doctor or health ambulatory care coordinator as soon as possible: allergic reactions like skin rash, itching or hives, swelling of the face, lips, or tongue breathing problems fever of 103 degrees F or more flu-like symptoms inconsolable crying infection pain, tingling, numbness in the hands or feet seizures swelling of arm or leg that was injected unusually weak or tired Side effects that usually do not require immediate medical attention (report these side effects to your doctor or health ambulatory care coordinator if they continue or are bothersome): fussy, irritable loss of appetite fever of 102 degrees F or less pain, tenderness, redness, swelling, or a 'knot' at site where injected vomiting What may interact with this medicine? immune globulin medicines that suppress your immune function like adalimumab, anakinra, infliximab medicines to treat cancer medicines that treat or prevent blood clots like warfarin, enoxaparin, and dalteparin steroid medicines like prednisone or cortisone What if I miss a dose? It is important not to miss your dose. Call your doctor or health ambulatory care coordinator if you are unable to keep an appointment. Where should I keep my medicine? This drug is given in a hospital or clinic and will not be stored at home. What should I tell my health care provider before I take this medicine? They need to know if you have any of these conditions: blood disorders like hemophilia fever or infection immune system problems neurologic disease seizures an unusual or allergic reaction to vaccines, thimerosal, latex, other medicines, foods, dyes, or preservatives or trying to get breast-feeding What should I watch for while using this medicine? See your health care provider for all shots of this vaccine as directed. To have protection from infection, you must have 3 shots of this vaccine plus boosters as needed. Tell your doctor right away if you have any serious or unusual side effects after getting this vaccine. You have been given the following additional information: Laceration, Extrem (Suture, Staple, Or Tape) Laceration, Extremity (Skin Glue) Diphtheria Toxoid Adsorbed, Pertussis Vaccine, Acellular (Adsorbed), Tetanus Toxoid, Adsorbed Suspension for injection Limit use of your right hand for two weeks. (Electronically signed by Steve Murry MD 12/16/2016 9:31)
== END 2016-12-15 03:20 | disposition home or self-care (01) ==
LOC: ED SRH 01:57
DX: S51.811A Laceration without foreign body of right forearm, initial encounter (principal); W45.0XXA Nail entering through skin, initial encounter; Y93.89 Activity, other specified; Y92.009 Unspecified place in unspecified non-institutional (private) residence as the place of occurrence of the external cause; Y99.9 Unspecified external cause status; Z23 Encounter for immunization; G40.909 Epilepsy, unspecified, not intractable, without status epilepticus; Z79.899 Other long term (current) drug therapy; F17.210 Nicotine dependence, cigarettes, uncomplicated; Z88.0 Allergy status to penicillin
CPT/HCPCS: 82708

== ENCOUNTER 2017-02-02 17:04 | Observation (INO) | payer OTHER ==
[~2017-02-02] VITALS: Ht 160 cm; Wt 86.0 kg
--- NOTE | 2017-02-02 18:42 | DIAGNOSTIC IMAGING REPORT ---
PROCEDURE: XR CHEST 2 VIEW INDICATION: Chest pain. Cough. History of lupus. Left AMA today following bronchoscopy at [place]. Subsequent syncopal episode. TECHNIQUE: PA and lateral views. COMPARISON: Compared to chest x-ray on 03/07/2010. FINDINGS: Allowing for suboptimal inspiration, there are moderate interstitial alveolar changes with mild bibasilar as atelectasis. Borderline cardiomegaly and pulmonary vascular congestion. Mediastinum is normal. Thorax is normal. IMPRESSION: 1. Moderate interstitial and alveolar changes throughout the lungs. Consider acute pneumonitis (e.g., viral, Mycoplasma, aspiration). 2. Mild cardiomegaly and pulmonary vascular congestion. Consider congestive heart failure and/or pulmonary edema associated with lupus. 3. Findings discussed with Dr. Alan Alexander.
--- NOTE | 2017-02-02 18:42 | DIAGNOSTIC IMAGING REPORT ---
PROCEDURE: XR CHEST 2 VIEW INDICATION: Chest pain. Cough. History of lupus. Left AMA today following bronchoscopy at [place]. Subsequent syncopal episode. TECHNIQUE: PA and lateral views. COMPARISON: Compared to chest x-ray on 03/07/2010. FINDINGS: Allowing for suboptimal inspiration, there are moderate interstitial alveolar changes with mild bibasilar as atelectasis. Borderline cardiomegaly and pulmonary vascular congestion. Mediastinum is normal. Thorax is normal. IMPRESSION: 1. Moderate interstitial and alveolar changes throughout the lungs. Consider acute pneumonitis (e.g., viral, Mycoplasma, aspiration). 2. Mild cardiomegaly and pulmonary vascular congestion. Consider congestive heart failure and/or pulmonary edema associated with lupus. 3. Findings discussed with Dr. Alan Alexander.
--- NOTE | 2017-02-02 20:01 | ED NURSING NOTES ---
Clinical Report - Nurses [facility] [address] [place] [address] 02/02/2017 17:05 Patient: ROLANDO GARBER TRIAGE Triage time 1717 PM. Acuity: LEVEL 3. Chief Complaint: (Feels like she is going to faint). Alert. No acute distress. --17:29 Myranda Ley R.N. 17:16 02/02/17. BP: 169/89 (regular adult cuff) taken on the left arm, via an automated monitor, while lying. HR: 76. RR: 21. O2 saturation: 97% on room air. Temp: 98.4 F (oral). Pain level now: 07/25. --17:29 Myranda Ley R.N. Weight: 75.7 kg stated. Height/Length: 62 inches Per Patient. BMI: 30.6. --17:15 Myranda Ley R.N. Medications Euafhcabfh-TCTO-Wmrd-Cod Oral. Gabapentin Oral. Naratriptan HCl Oral. Omeprazole Oral. Ranitidine HCl Oral. Zofran Oral. --17:23 Myranda Ley R.N. Allergies Aspirin. Ibuprofen. Penicillin. Sulfa Antibiotics. --17:23 Myranda Ley R.N. Medication/allergy information source: the patient. --17:29 Myranda Ley R.N. History Arrived by private vehicle. Historian: patient. Accompanied by family. Primary physician (Dr. River Wolf- [facility]). ( Pt signed herself out against medical advice today over at [facility] in [place], was admitted on Monday. As per pt, "no one was doing anything for her, doctors where not seeing me and nothing was being done for me there so I left" Here because "she feels more comfortable here and needs help with her breathing"). Onset. (last monday). She has had difficulty breathing. No fever, weakness, cough or skin rash. Denies muscle aches. Treatment IN STORE REPRESENTATIVE: None. PAST MEDICAL HX: Immunizations: up-to-date. The patient has had a hysterectomy. SOCIAL HX: Light tobacco smoker (cigarette)- less than 1/2 a pack per day. Occasional alcohol use. No drug use. No infectious disease exposure. ABUSE ASSESSMENT: No report of abuse. SELF HARM ASSESSMENT: A self harm assessment was performed. The patient answered "no" to the question "Do you have thoughts of harming or killing yourself?" and "Have you recently had thoughts about harming or killing others?". FALL RISK ASSESSMENT: Fall risk assessment completed. No fall risk identified. NUTRITIONAL RISK ASSESSMENT: The nutritional risk assessment revealed no deficiencies. FUNCTIONAL ASSESSMENT: Functional assessment: no impairments noted. LEARNING NEEDS ASSESSMENT: The learning needs assessment revealed no barriers. SKIN INTEGRITY ASSESSMENT: Skin integrity risk assessment completed. No skin integrity risk identified. --17:29 Myranda Ley R.N. PROBLEMS: Laceration. Sprain. Abdominal Pain. Pyelonephritis. UTI - Urinary Tract Infection. Tetanus Status. Headache. Abscess. Systemic Lupus Erythematosus. Hidradenitis Suppurativa. Ureterolithiasis. Lifestyle / Substance Problems. Fibromyalgia. Lupus. Seizure. Cervical Strain. Seizure Disorder. Immunizations. LNMP - Last Normal Menstrual Period. --17:24 Myranda Ley R.N. ADDITIONAL SURGERIES: . Hysterectomy. Lithotripsy. Previous Abdominal Surgery. Sweat gland removal. Tubal Ligation. --17:24 Myranda Ley R.N. Interventions ID band on patient. --17:29 Myranda Ley R.N. PHYSICAL ASSESSMENT To room via wheelchair. GENERAL / NEURO / PSYCH: Alert. Oriented X 4. Appears in no acute distress. Appears anxious. HEENT: Pupils equal, round and reactive to light. Mucous membranes are pink. RESPIRATORY: The patient can speak a few words at a time. Chest nontender. Breath sounds within normal limits. CVS: Capillary refill less than 2 seconds. Pulses within normal limits. GI / : Abdomen nontender and normal bowel sounds. SKIN: Skin intact. Skin is warm and dry. Normal skin turgor. --17:29 Myranda Ley R.N. NURSING PROGRESS NOTES The initial plan of care for this patient has been created This plan of care was discussed with the patient. Pulse oximeter and NIBP monitor placed on patient. Patient gowned. Reassurance given. Two patient identifiers checked. Call light placed in reach. Side rails up x 1. Bed placed in lowest position. Brakes of bed on. --17:30 Myranda Ley R.N. Pulse oximeter and NIBP monitor placed on patient. Reassurance given. Overall patient status is the same- she states feels the same. ( Pt very anxious, looking at monitor frequently to "make sure my oxygenation is good" reassurance given.). --18:31 Myranda Ley R.N. 18:00 02/02/17. BP: 154/90. HR: 59. RR: 14. O2 saturation: 100%. Pain level now: 07/25. --18:31 Myranda Ley R.N. 18:31 02/02/17. BP: 155/86 taken while standing. HR: 70. RR: 14. O2 saturation: 100%. Pain level now: 07/25. --18:31 Myranda Ley R.N. Reassurance given. --18:31 Myranda Ley R.N. 18:20 02/02/17. BP: 144/85 (regular adult cuff) taken on the left arm, via an automated monitor, while sitting. HR: 62. RR: 15. O2 saturation: 100%. Pain level now: 07/25. --18:32 Myranda Ley R.N. 18:41 02/02/2017 Site #1 started via IV in the right antecubital space with an 20g angiocath. Blood drawn. --18:51 Myranda Ley R.N. 18:46 02/02/2017 Dilaudid (HYDROmorphone HCl PF) IVP 1 mg given over 1 minute(s) via site #1. IV patency established. IV site checked: no pain, redness, or swelling. IV flushed thoroughly pre- and post-medication administration. --18:51 Myranda eLy R.N. 18:51 02/02/2017 Ativan (LORazepam) IVP 1 mg given over 1 minute(s) via site #1. Allergies verified, confirmed 5 rights and sedative warning given to the patient and patient's family. IV patency established. IV site checked: no pain, redness, or swelling. IV flushed thoroughly pre- and post-medication administration. IVP given by RN. --18:51 Myranda Ley R.N. 18:52 02/02/2017 Started bag #1 999 mL IV Fluids IV NS (Saline); at 999 mL/hr over 1 hour(s) via site #1 via IV pump. Allergies verified and confirmed 5 rights. IV patency established. IV site checked: no pain, redness, or swelling. IV flushed thoroughly pre- and post-medication administration. --18:52 Myranda Ley R.N. EKG time: (1856). EKG was ordered, performed by a tech and shown to the ED physician. --19:00 Car Lee ER Tech1 ( @ 1840: Orthostatic vitals: Lying - BP 156/88, Pulse 72. Sitting - BP 144/85, Pulse 79. Standing - BP 155/86, Pulse 70. Results shown to ED MD.). --19:02 Car Lee ER Tech1 19:21 02/02/2017 Ativan IVP Response: no adverse reaction. --19:21 Myranda Ley R.N. 19:21 02/02/2017 Dilaudid IVP Response: no adverse reaction. --19:21 Myranda Ley R.N. 19:00 02/02/17. BP: 157/100. HR: 70. RR: 14. O2 saturation: 97% on nasal cannula at 2 liters/minute. Pain level now: 05/25. --19:23 Myranda Ley R.N. Pulse oximeter and NIBP monitor placed on patient. Reassurance given. ( Pt sitting up in bed, shopping on her computer, asking 'if getting admitted and pain meds how often will be given" Comfort provided, family at bedside). --19:23 Myranda Ley R.N. Patient and family informed about reason for wait and about plan of care. --19:33 Chhaya Mosley R.N. 19:42 02/02/2017 Dilaudid (HYDROmorphone HCl PF) IVP 1 mg given over 1 minute(s) via site #1. Sedative warning given to the patient. IV patency established. IV site checked: no pain, redness, or swelling. IV flushed thoroughly pre- and post-medication administration. IVP given by RN. --19:45 Chhaya Mosley R.N. 19:45 02/02/17. BP: 157/107. HR: 71. RR: 16. O2 saturation: 98% on room air. Weaver-Robert pain scale: 10. --19:45 Chhaya Mosley R.N. 21:16 02/02/2017 Started 750 mg of Levaquin (Levofloxacin) IVPB in bag #1 150 mL; at 150 mL/hr over 1.5 hour(s) via site #1 via IV pump. Allergies verified and confirmed 5 rights. IV patency established. IV site checked: no pain, redness, or swelling. IV flushed thoroughly pre- and post-medication administration. --21:16 Myranda Ley R.N. 21:16 02/02/2017 Dilaudid IVP Response: no adverse reaction. --21:16 Myranda Ley R.N. 21:19 02/02/2017 SOLU-MEDROL (MethylPREDNISolone Sodium Succ) IVP 80 mg given over 2 minute(s) via site #1. Allergies verified and confirmed 5 rights. IV patency established. IV site checked: no pain, redness, or swelling. IV flushed thoroughly pre- and post-medication administration. IVP given by RN. --21:19 Myranda Ley R.N. Reassurance given. GENERAL / NEURO / PSYCH: The patient reports anxiety. Denies headache. RESPIRATORY: Denies difficulty breathing. CVS: The patient reports chest pain. GI / : Denies nausea. Patient identifiers checked. Call light placed in reach. Side rails up. Bed placed in lowest position. Brakes of bed on. --21:26 Myranda Ley R.N. 21:25 02/02/17. BP: 165/83. HR: 57. RR: 15. O2 saturation: 96% on room air. Temp: 98.5 F (oral). Pain level now: 06/25. --21:26 Ley, Myranda, R.N. 22:23- Pt approaches nurses station, asking how soon she can go upstairs and that the nurse said she can have more Ativan and Dilaudid and would "really like that to happen". --22:24 Chhaya Mosley R.N. 22:00 02/02/2017 SOLU-MEDROL IVP Response: no adverse reaction. --23:09 Myranda Ley R.N. 22:30 02/02/2017 Levaquin IVPB Continued: at the rate of 150 mL/hr. 20 mL remaining bag #1. IV patency established. IV site checked: no pain, redness, or swelling. IV flushed thoroughly. --23:09 Myranda Ley R.N. 22:30 02/02/2017 IV Fluids IV NS Discontinued: bag #1 infused upon admission. Total amount infused: 1000 mL. --23:10 Myranda Ley R.N. DISPOSITION / DISCHARGE 22:00 02/02/2017 Site #1 reassessed; patent, infusing well and no signs of infection or infiltration. --23:07 Myranda Ley R.N. Departure time: 2238 PM. Condition at departure: improved and stable. The goals identified in the patient's plan of care were met. Report was given to a nurse via a phone call. All questions were answered. Report was acknowledged and care was transferred. (MIGUEL Damian). FALL RISK ASSESSMENT: Fall risk assessment completed. No fall risk identified. --23:09 Myranda Ley R.N. 23:06 02/02/17. BP: 165/54 (regular adult cuff) taken on the right arm, via an automated monitor, while sitting. HR: 87. RR: 15 (regular and unlabored). O2 saturation: 96% on room air. Temp: 98.2 F (oral). Pain level now: 06/25. --23:09 Myranda Ley R.N. Locked/Released at 02/02/2017 23:10 by Myranda Ley R.N.
--- NOTE | 2017-02-02 20:01 | ED NURSING NOTES ---
Clinical Report - Nurses [facility] [address] [place] [address] 02/02/2017 17:05 Patient: ROLANDO GARBER TRIAGE Triage time 1717 PM. Acuity: LEVEL 3. Chief Complaint: (Feels like she is going to faint). Alert. No acute distress. --17:29 Myranda Ley R.N. 17:16 02/02/17. BP: 169/89 (regular adult cuff) taken on the left arm, via an automated monitor, while lying. HR: 76. RR: 21. O2 saturation: 97% on room air. Temp: 98.4 F (oral). Pain level now: 07/25. --17:29 Myranda Ley R.N. Weight: 75.7 kg stated. Height/Length: 62 inches Per Patient. BMI: 30.6. --17:15 Myranda Ley R.N. Medications Dybenltjez-HIKP-Ovwo-Cod Oral. Gabapentin Oral. Naratriptan HCl Oral. Omeprazole Oral. Ranitidine HCl Oral. Zofran Oral. --17:23 Myranda Ley R.N. Allergies Aspirin. Ibuprofen. Penicillin. Sulfa Antibiotics. --17:23 Myranda Ley R.N. Medication/allergy information source: the patient. --17:29 Myranda Ley R.N. History Arrived by private vehicle. Historian: patient. Accompanied by family. Primary physician (Dr. River Wolf- [facility]). ( Pt signed herself out against medical advice today over at [facility] in [place], was admitted on Monday. As per pt, "no one was doing anything for her, doctors where not seeing me and nothing was being done for me there so I left" Here because "she feels more comfortable here and needs help with her breathing"). Onset. (last monday). She has had difficulty breathing. No fever, weakness, cough or skin rash. Denies muscle aches. Treatment MEDICAL CLAIMS PROCESSOR: None. PAST MEDICAL HX: Immunizations: up-to-date. The patient has had a hysterectomy. SOCIAL HX: Light tobacco smoker (cigarette)- less than 1/2 a pack per day. Occasional alcohol use. No drug use. No infectious disease exposure. ABUSE ASSESSMENT: No report of abuse. SELF HARM ASSESSMENT: A self harm assessment was performed. The patient answered "no" to the question "Do you have thoughts of harming or killing yourself?" and "Have you recently had thoughts about harming or killing others?". FALL RISK ASSESSMENT: Fall risk assessment completed. No fall risk identified. NUTRITIONAL RISK ASSESSMENT: The nutritional risk assessment revealed no deficiencies. FUNCTIONAL ASSESSMENT: Functional assessment: no impairments noted. LEARNING NEEDS ASSESSMENT: The learning needs assessment revealed no barriers. SKIN INTEGRITY ASSESSMENT: Skin integrity risk assessment completed. No skin integrity risk identified. --17:29 Myranda Ley R.N. PROBLEMS: Laceration. Sprain. Abdominal Pain. Pyelonephritis. UTI - Urinary Tract Infection. Tetanus Status. Headache. Abscess. Systemic Lupus Erythematosus. Hidradenitis Suppurativa. Ureterolithiasis. Lifestyle / Substance Problems. Fibromyalgia. Lupus. Seizure. Cervical Strain. Seizure Disorder. Immunizations. LNMP - Last Normal Menstrual Period. --17:24 Myranda Ley R.N. ADDITIONAL SURGERIES: . Hysterectomy. Lithotripsy. Previous Abdominal Surgery. Sweat gland removal. Tubal Ligation. --17:24 Myranda Ley R.N. Interventions ID band on patient. --17:29 Myranda Ley R.N. PHYSICAL ASSESSMENT To room via wheelchair. GENERAL / NEURO / PSYCH: Alert. Oriented X 4. Appears in no acute distress. Appears anxious. HEENT: Pupils equal, round and reactive to light. Mucous membranes are pink. RESPIRATORY: The patient can speak a few words at a time. Chest nontender. Breath sounds within normal limits. CVS: Capillary refill less than 2 seconds. Pulses within normal limits. GI / : Abdomen nontender and normal bowel sounds. SKIN: Skin intact. Skin is warm and dry. Normal skin turgor. --17:29 Myranda Ley R.N. NURSING PROGRESS NOTES The initial plan of care for this patient has been created This plan of care was discussed with the patient. Pulse oximeter and NIBP monitor placed on patient. Patient gowned. Reassurance given. Two patient identifiers checked. Call light placed in reach. Side rails up x 1. Bed placed in lowest position. Brakes of bed on. --17:30 Myranda Ley R.N. Pulse oximeter and NIBP monitor placed on patient. Reassurance given. Overall patient status is the same- she states feels the same. ( Pt very anxious, looking at monitor frequently to "make sure my oxygenation is good" reassurance given.). --18:31 Myranda Ley R.N. 18:00 02/02/17. BP: 154/90. HR: 59. RR: 14. O2 saturation: 100%. Pain level now: 07/25. --18:31 Myranda Ley R.N. 18:31 02/02/17. BP: 155/86 taken while standing. HR: 70. RR: 14. O2 saturation: 100%. Pain level now: 07/25. --18:31 Myranda Ley R.N. Reassurance given. --18:31 Myranda Ley R.N. 18:20 02/02/17. BP: 144/85 (regular adult cuff) taken on the left arm, via an automated monitor, while sitting. HR: 62. RR: 15. O2 saturation: 100%. Pain level now: 07/25. --18:32 Myranda Ley R.N. 18:41 02/02/2017 Site #1 started via IV in the right antecubital space with an 20g angiocath. Blood drawn. --18:51 Myranda Ley R.N. 18:46 02/02/2017 Dilaudid (HYDROmorphone HCl PF) IVP 1 mg given over 1 minute(s) via site #1. IV patency established. IV site checked: no pain, redness, or swelling. IV flushed thoroughly pre- and post-medication administration. --18:51 Myranda Ley R.N. 18:51 02/02/2017 Ativan (LORazepam) IVP 1 mg given over 1 minute(s) via site #1. Allergies verified, confirmed 5 rights and sedative warning given to the patient and patient's family. IV patency established. IV site checked: no pain, redness, or swelling. IV flushed thoroughly pre- and post-medication administration. IVP given by RN. --18:51 Myranda Ley R.N. 18:52 02/02/2017 Started bag #1 999 mL IV Fluids IV NS (Saline); at 999 mL/hr over 1 hour(s) via site #1 via IV pump. Allergies verified and confirmed 5 rights. IV patency established. IV site checked: no pain, redness, or swelling. IV flushed thoroughly pre- and post-medication administration. --18:52 Myranda Ley R.N. EKG time: (1856). EKG was ordered, performed by a tech and shown to the ED physician. --19:00 [facility] ER Tech1 ( @ 1840: Orthostatic vitals: Lying - BP 156/88, Pulse 72. Sitting - BP 144/85, Pulse 79. Standing - BP 155/86, Pulse 70. Results shown to ED MD.). --19:02 [facility] ER Tech1 19:21 02/02/2017 Ativan IVP Response: no adverse reaction. --19:21 Myranda Ley R.N. 19:21 02/02/2017 Dilaudid IVP Response: no adverse reaction. --19:21 Myranda Ley R.N. 19:00 02/02/17. BP: 157/100. HR: 70. RR: 14. O2 saturation: 97% on nasal cannula at 2 liters/minute. Pain level now: 05/25. --19:23 Myranda Ley R.N. Pulse oximeter and NIBP monitor placed on patient. Reassurance given. ( Pt sitting up in bed, shopping on her computer, asking 'if getting admitted and pain meds how often will be given" Comfort provided, family at bedside). --19:23 Myranda Ley R.N. Patient and family informed about reason for wait and about plan of care. --19:33 Chhaya Mosley R.N. 19:42 02/02/2017 Dilaudid (HYDROmorphone HCl PF) IVP 1 mg given over 1 minute(s) via site #1. Sedative warning given to the patient. IV patency established. IV site checked: no pain, redness, or swelling. IV flushed thoroughly pre- and post-medication administration. IVP given by RN. --19:45 Chhaya Mosley R.N. 19:45 02/02/17. BP: 157/107. HR: 71. RR: 16. O2 saturation: 98% on room air. Weaver-Robert pain scale: 10. --19:45 Chhaya Mosley R.N. 21:16 02/02/2017 Started 750 mg of Levaquin (Levofloxacin) IVPB in bag #1 150 mL; at 150 mL/hr over 1.5 hour(s) via site #1 via IV pump. Allergies verified and confirmed 5 rights. IV patency established. IV site checked: no pain, redness, or swelling. IV flushed thoroughly pre- and post-medication administration. --21:16 Myranda Ley R.N. 21:16 02/02/2017 Dilaudid IVP Response: no adverse reaction. --21:16 Myranda eLy R.N. 21:19 02/02/2017 SOLU-MEDROL (MethylPREDNISolone Sodium Succ) IVP 80 mg given over 2 minute(s) via site #1. Allergies verified and confirmed 5 rights. IV patency established. IV site checked: no pain, redness, or swelling. IV flushed thoroughly pre- and post-medication administration. IVP given by RN. --21:19 Myranda Ley R.N. Reassurance given. GENERAL / NEURO / PSYCH: The patient reports anxiety. Denies headache. RESPIRATORY: Denies difficulty breathing. CVS: The patient reports chest pain. GI / : Denies nausea. Patient identifiers checked. Call light placed in reach. Side rails up. Bed placed in lowest position. Brakes of bed on. --21:26 Myranda Ley R.N. 21:25 02/02/17. BP: 165/83. HR: 57. RR: 15. O2 saturation: 96% on room air. Temp: 98.5 F (oral). Pain level now: 06/25. --21:26 Ley, Myranda, R.N. 22:23- Pt approaches nurses station, asking how soon she can go upstairs and that the nurse said she can have more Ativan and Dilaudid and would "really like that to happen". --22:24 Chhaya Mosley R.N. 22:00 02/02/2017 SOLU-MEDROL IVP Response: no adverse reaction. --23:09 Myranda Ley R.N. 22:30 02/02/2017 Levaquin IVPB Continued: at the rate of 150 mL/hr. 20 mL remaining bag #1. IV patency established. IV site checked: no pain, redness, or swelling. IV flushed thoroughly. --23:09 Myranda Ley R.N. 22:30 02/02/2017 IV Fluids IV NS Discontinued: bag #1 infused upon admission. Total amount infused: 1000 mL. --23:10 Myranda Ley R.N. DISPOSITION / DISCHARGE 22:00 02/02/2017 Site #1 reassessed; patent, infusing well and no signs of infection or infiltration. --23:07 Myranda Ley R.N. Departure time: 2238 PM. Condition at departure: improved and stable. The goals identified in the patient's plan of care were met. Report was given to a nurse via a phone call. All questions were answered. Report was acknowledged and care was transferred. (MIGUEL Damian). FALL RISK ASSESSMENT: Fall risk assessment completed. No fall risk identified. --23:09 Myranda Ley R.N. 23:06 02/02/17. BP: 165/54 (regular adult cuff) taken on the right arm, via an automated monitor, while sitting. HR: 87. RR: 15 (regular and unlabored). O2 saturation: 96% on room air. Temp: 98.2 F (oral). Pain level now: 06/25. --23:09 Myranda Ley R.N. Locked/Released at 02/02/2017 23:10 by Myranda Ley R.N.
--- NOTE | 2017-02-02 20:01 | ED CLINICAL REPORT ---
Clinical Report - Physicians/Mid Levels [facility] [address] [place] [address] 02/02/2017 17:05 Patient: ROLANDO GARBER Time Seen: 17:26 Feb 02 2017. Arrived- By private vehicle. Historian- patient. CPT: ER phys charges level 5 plus (#[id number]). EKG interpretation (#[id number]). HISTORY OF PRESENT ILLNESS Chief Complaint: SINGLE SYNCOPAL EPISODE. The patient has recovered. This occurred just prior to arrival. (patient left [facility] today. She was there since the of this month. She was admitted for respiratory failure and hypoxia along with pulmonary infiltrate suspicious of pneumonia. She states that they finally felt it was a noninfectious source causing pulmonary problems. She underwent a bronchoscopy earlier today but does not have the results of that. She decided to come to [place] for reevaluation but on the way here in the car she suffered an episode of syncope. Her neighbor drove her.). Event was witnessed. At time of event, she was sitting. The patient felt faint and lost consciousness. No seizure activity, incontinence or apnea noted. The patient had preceding symptoms of light-headedness. Had a single episode. The episode was brief. No injuries noted. Similar symptoms previously: None. Recent medical care: The patient was seen recently at another facility and hospitalized ([facility] 3 days ago). Seen for other problems; dyspnea. Evaluation/treatment: x-rays and labs. Diagnosis: (unclear). REVIEW OF SYSTEMS No headache, chest pain, palpitations, abdominal pain or vomiting. No diarrhea, black stools, bloody stools or fever. No sore throat or throat, difficulty with urination or urination or skin rash. No enlarged lymph nodes, nasal congestion, epistaxis, runny nose or sinus pain. No calf pain, pedal edema, palpitations, urinary frequency or diabetic symptoms. No easy bruising. The patient has had difficulty breathing, dizziness, weakness,, a cough and weakness. All systems otherwise negative, except as recorded above. PAST HISTORY ( Laceration. Sprain. Abdominal Pain. Pyelonephritis. UTI - Urinary Tract Infection. Tetanus Status. Headache. Abscess. Systemic Lupus Erythematosus. Hidradenitis Suppurativa. Ureterolithiasis. Lifestyle / Substance Problems. Fibromyalgia. Lupus. Seizure. Cervical Strain. Seizure Disorder. Immunizations. LNMP - Last Normal Menstrual Period. . ADDITIONAL SURGERIES: . Hysterectomy. Lithotripsy. Previous Abdominal Surgery. Sweat gland removal. Tubal Ligation.). Medications: Krjswtyaem-EXOA-Hzgt-Cod Oral. Gabapentin Oral. Naratriptan HCl Oral. Omeprazole Oral. Ranitidine HCl Oral. Zofran Oral. Allergies: Aspirin. Ibuprofen. Penicillin. Sulfa Antibiotics. SOCIAL HISTORY Heavy tobacco smoker (cigarette)- less than 1 pack per day. Occasional alcohol use. No drug use. ADDITIONAL NOTES The nursing notes have been reviewed. PHYSICAL EXAM Vital Signs: 02/02/2017 17:16 BP: 169/89. HR: 76. RR: 21. O2 saturation: 97%. Temp: 98.4 F. Pain level now: 10/10. Appearance: Alert. No acute distress. Anxious. Eyes: Pupils equal, round and reactive to light. No nystagmus. Extraocular movements normal. ENT: Normal ENT inspection. Moist mucous membranes. Pharynx normal. Neck: Normal inspection. Neck supple. CVS: Normal heart rate and rhythm. Heart sounds normal. Pulses normal. Respiratory: Mild respiratory distress. Mild rales present in the bases bilaterally. No wheezes. Abdomen: Soft and nontender. Back: Normal inspection. Skin: Skin warm. Normal skin color. No rash. Extremities: Extremities exhibit normal ROM. No lower extremity edema. Neuro: Alert. Oriented X 3. Mood/affect normal. Speech normal. Cranial nerves normal (as tested). No cerebellar findings. No motor deficit. No sensory deficit. Reflexes normal. LABS, X-RAYS, AND EKG EKG: Normal sinus rhythm. Rate: 57. Bradycardia. Normal P waves. Normal QRS complex. Normal ST and T waves. The study has been interpreted contemporaneously. The EKG appears to be a good tracing. Chest X-ray: Infiltrate in the right lower lobe and left lower lobe. Consistent with pneumonia and CHF. Views: AP (portable). Technique: good. The X-rays were independently viewed by me, interpreted by the radiologist and discussed with the radiologist. Chest CT: (CHF, , interstitial stranding. Patchy minor infiltrates lower lobes.). Chest CT performed with contrast. The study was independently viewed by me, interpreted by the radiologist and discussed with the radiologist. Laboratory Tests: CBC w Diff: (BRITANY: 02/02/2017 18:40) ( [facility]02[facility]:24) Final results Test Result Flag Units (Reference) WHITE BLOOD COUNT 14.3 H K/uL (4.5-11.5) RED BLOOD COUNT 4.17 M/uL (4.00-5.20) HEMOGLOBIN 11.7 L gm/dL (12.0-16.0) HEMATOCRIT 35.5 L % (36.0-46.0) MEAN CELL VOLUME 85 fL (80-100) MEAN CORPUSCULAR HGB 28 pg (26-34) MEAN CORPUSCULAR HGB CONC 33 g/dL (31-37) RED CELL DISTRIBUTION WIDTH 13.2 % (11.6-14.8) PLATELET COUNT 427 H K/uL (150-400) NEUTROPHIL % 83.8 H % (50-75) LYMPH % 14.3 L % (25-40) MONO % 1.6 L % (3-14) EOSINOPHIL % 0 % (0-4) BASOPHIL % 0.3 % (0-2) SED RATE WESTERGREN 8 mm/hr (0-20) [id number]: (BRITANY: 02/02/2017 18:55) ( [facility] 02/02/2017 19:18) Final results Test Result Flag Units (Reference) D-DIMER QUANTITATIVE < 0.27 L ug/mLFEU (0.27-0.52) The primary value of this quantitative assay relates toits negative predictive value (i.e. exclusion) of pulmonaryembolism/deep vein thrombosis/DIC.Elevated levels of d-dimer may also occur with:, age, cancer, inflammation, liver disease,post-op, infection, hematoma, coronary disease, peripheralarteriopathy, bleeding disorders and thrombolytic treatment.Results should be correlated with other clinical andradiological data.Testing Methodology: Latex Immunoassay CPK: (BRITANY: 02/02/2017 18:40) ( [facility] 02/02/2017 19:15) Final results Test Result Flag Units (Reference) CPK 45 U/L (24-260) TROPONIN I <0.05 L ng/mL (0.00-1.5) TROPONIN REFERENCE RANGE:<0.1 NEGATIVE0.1-1.5 INDETERMINANT>1.5 POSITIVE C-REACTIVE PROTEIN 1.4 H mg/dL (0.0-0.9) BNP: (BRITANY: 02/02/2017 18:40) ( [facility] 02/02/2017 19:23) Final results Test Result Flag Units (Reference) B-TYPE NATRIURETIC PEPTIDE 267 H pg/ml (5-100) [id number]: (BRITANY: 02/02/2017 18:40) ( [facility] 02/02/2017 19:36) Final results Test Result Flag Units (Reference) PROCALCITONIN <0.5 ng/mL (0-0.5) PCT Concentration: Interpretation : Risk/option for action PCT <=0.5 ng/mL : Systemic : Low risk forinfection(sepsis): progression to severeis not likely. : systemic infection.Local bacterial : CAUTION-PCT levelsinfection is : below 0.5 ng/mL do notpossible. : exclude an infection,because localizedinfections (withoutsystemic signs) may beassociated with suchlow levels. If PCT ismeasured very earlyafter a bacterialchallenge (usually <6hours), these valuesmay still be low. Inthis case PCT shouldbe re-assessed 6-24hours later. PCT >0.5 and : Systemic infection: Moderate risk for<= 2 ng/mL : (sepsis) is : progression to severepossible, but : systemic infection.other conditions : The patient should beare known to : closely monitoredelevate PCT. : both clinically andby re-assessing PCTwithin 6-24 hours. PCT > 2 ng/mL : Systemic infection: High risk for(sepsis) is likely: progression to severeunless other : systemic infection.causes are known. : PCT >= 10 ng/mL : Important systemic: High likelihood ofinflammatory : severe sepsis orresponse, almost : septic shock.exclusively due to:severe bacterial :sepsis or septic :shock. : . PROGRESS AND PROCEDURES Course of Care: Dilaudid 1 mg Iv times 2 BC times 2 Levaquin 750 mg IV Solumedrol 80 mg IV Patient is stable. Symptoms better. Discussed case with on-call health care provider, (Maria Elena). Reviewed test results. Agreed upon treatment plan. Health care provider will see patient in ED. Patient/family counseled. Old medical records ordered. Disposition orders written. Disposition: Discharged. CLINICAL IMPRESSION Syncope of unknown cause .12 lead EKG performed. Bilateral pulmonary infiltrates. Pleuritic chest pain. (Electronically signed by Alan Alexander MD 02/03/2017 7:28)
--- NOTE | 2017-02-02 20:01 | ED CLINICAL REPORT ---
Clinical Report - Physicians/Mid Levels [facility] [address] [place] [address] 02/02/2017 17:05 Patient: ROLANDO GARBER Time Seen: 17:26 Feb 02 2017. Arrived- By private vehicle. Historian- patient. CPT: ER phys charges level 5 plus (#[id number]). EKG interpretation (#[id number]). HISTORY OF PRESENT ILLNESS Chief Complaint: SINGLE SYNCOPAL EPISODE. The patient has recovered. This occurred just prior to arrival. (patient left [facility] today. She was there since the of this month. She was admitted for respiratory failure and hypoxia along with pulmonary infiltrate suspicious of pneumonia. She states that they finally felt it was a noninfectious source causing pulmonary problems. She underwent a bronchoscopy earlier today but does not have the results of that. She decided to come to [place] for reevaluation but on the way here in the car she suffered an episode of syncope. Her neighbor drove her.). Event was witnessed. At time of event, she was sitting. The patient felt faint and lost consciousness. No seizure activity, incontinence or apnea noted. The patient had preceding symptoms of light-headedness. Had a single episode. The episode was brief. No injuries noted. Similar symptoms previously: None. Recent medical care: The patient was seen recently at another facility and hospitalized ([facility] 3 days ago). Seen for other problems; dyspnea. Evaluation/treatment: x-rays and labs. Diagnosis: (unclear). REVIEW OF SYSTEMS No headache, chest pain, palpitations, abdominal pain or vomiting. No diarrhea, black stools, bloody stools or fever. No sore throat or throat, difficulty with urination or urination or skin rash. No enlarged lymph nodes, nasal congestion, epistaxis, runny nose or sinus pain. No calf pain, pedal edema, palpitations, urinary frequency or diabetic symptoms. No easy bruising. The patient has had difficulty breathing, dizziness, weakness,, a cough and weakness. All systems otherwise negative, except as recorded above. PAST HISTORY ( Laceration. Sprain. Abdominal Pain. Pyelonephritis. UTI - Urinary Tract Infection. Tetanus Status. Headache. Abscess. Systemic Lupus Erythematosus. Hidradenitis Suppurativa. Ureterolithiasis. Lifestyle / Substance Problems. Fibromyalgia. Lupus. Seizure. Cervical Strain. Seizure Disorder. Immunizations. LNMP - Last Normal Menstrual Period. . ADDITIONAL SURGERIES: . Hysterectomy. Lithotripsy. Previous Abdominal Surgery. Sweat gland removal. Tubal Ligation.). Medications: Gtgixgdxky-XHMQ-Bdha-Cod Oral. Gabapentin Oral. Naratriptan HCl Oral. Omeprazole Oral. Ranitidine HCl Oral. Zofran Oral. Allergies: Aspirin. Ibuprofen. Penicillin. Sulfa Antibiotics. SOCIAL HISTORY Heavy tobacco smoker (cigarette)- less than 1 pack per day. Occasional alcohol use. No drug use. ADDITIONAL NOTES The nursing notes have been reviewed. PHYSICAL EXAM Vital Signs: 02/02/2017 17:16 BP: 169/89. HR: 76. RR: 21. O2 saturation: 97%. Temp: 98.4 F. Pain level now: 10/10. Appearance: Alert. No acute distress. Anxious. Eyes: Pupils equal, round and reactive to light. No nystagmus. Extraocular movements normal. ENT: Normal ENT inspection. Moist mucous membranes. Pharynx normal. Neck: Normal inspection. Neck supple. CVS: Normal heart rate and rhythm. Heart sounds normal. Pulses normal. Respiratory: Mild respiratory distress. Mild rales present in the bases bilaterally. No wheezes. Abdomen: Soft and nontender. Back: Normal inspection. Skin: Skin warm. Normal skin color. No rash. Extremities: Extremities exhibit normal ROM. No lower extremity edema. Neuro: Alert. Oriented X 3. Mood/affect normal. Speech normal. Cranial nerves normal (as tested). No cerebellar findings. No motor deficit. No sensory deficit. Reflexes normal. LABS, X-RAYS, AND EKG EKG: Normal sinus rhythm. Rate: 57. Bradycardia. Normal P waves. Normal QRS complex. Normal ST and T waves. The study has been interpreted contemporaneously. The EKG appears to be a good tracing. Chest X-ray: Infiltrate in the right lower lobe and left lower lobe. Consistent with pneumonia and CHF. Views: AP (portable). Technique: good. The X-rays were independently viewed by me, interpreted by the radiologist and discussed with the radiologist. Chest CT: (CHF, , interstitial stranding. Patchy minor infiltrates lower lobes.). Chest CT performed with contrast. The study was independently viewed by me, interpreted by the radiologist and discussed with the radiologist. Laboratory Tests: CBC w Diff: (BRITANY: 02/02/2017 18:40) ( [facility] 02/02/2017 19:24) Final results Test Result Flag Units (Reference) WHITE BLOOD COUNT 14.3 H K/uL (4.5-11.5) RED BLOOD COUNT 4.17 M/uL (4.00-5.20) HEMOGLOBIN 11.7 L gm/dL (12.0-16.0) HEMATOCRIT 35.5 L % (36.0-46.0) MEAN CELL VOLUME 85 fL (80-100) MEAN CORPUSCULAR HGB 28 pg (26-34) MEAN CORPUSCULAR HGB CONC 33 g/dL (31-37) RED CELL DISTRIBUTION WIDTH 13.2 % (11.6-14.8) PLATELET COUNT 427 H K/uL (150-400) NEUTROPHIL % 83.8 H % (50-75) LYMPH % 14.3 L % (25-40) MONO % 1.6 L % (3-14) EOSINOPHIL % 0 % (0-4) BASOPHIL % 0.3 % (0-2) SED RATE WESTERGREN 8 mm/hr (0-20) [id number]: (BRITANY: 02/02/2017 18:55) ( [facility] 02/02/2017 19:18) Final results Test Result Flag Units (Reference) D-DIMER QUANTITATIVE < 0.27 L ug/mLFEU (0.27-0.52) The primary value of this quantitative assay relates toits negative predictive value (i.e. exclusion) of pulmonaryembolism/deep vein thrombosis/DIC.Elevated levels of d-dimer may also occur with:, age, cancer, inflammation, liver disease,post-op, infection, hematoma, coronary disease, peripheralarteriopathy, bleeding disorders and thrombolytic treatment.Results should be correlated with other clinical andradiological data.Testing Methodology: Latex Immunoassay CPK: (BRITANY: 02/02/2017 18:40) ( [facility] 02/02/2017 19:15) Final results Test Result Flag Units (Reference) CPK 45 U/L (24-260) TROPONIN I <0.05 L ng/mL (0.00-1.5) TROPONIN REFERENCE RANGE:<0.1 NEGATIVE0.1-1.5 INDETERMINANT>1.5 POSITIVE C-REACTIVE PROTEIN 1.4 H mg/dL (0.0-0.9) BNP: (BRITANY: 02/02/2017 18:40) ( [facility] 02/02/2017 19:23) Final results Test Result Flag Units (Reference) B-TYPE NATRIURETIC PEPTIDE 267 H pg/ml (5-100) [id number]: (BRITANY: 02/02/2017 18:40) ( [facility] 02/02/2017 19:36) Final results Test Result Flag Units (Reference) PROCALCITONIN <0.5 ng/mL (0-0.5) PCT Concentration: Interpretation : Risk/option for action PCT <=0.5 ng/mL : Systemic : Low risk forinfection(sepsis): progression to severeis not likely. : systemic infection.Local bacterial : CAUTION-PCT levelsinfection is : below 0.5 ng/mL do notpossible. : exclude an infection,because localizedinfections (withoutsystemic signs) may beassociated with suchlow levels. If PCT ismeasured very earlyafter a bacterialchallenge (usually <6hours), these valuesmay still be low. Inthis case PCT shouldbe re-assessed 6-24hours later. PCT >0.5 and : Systemic infection: Moderate risk for<= 2 ng/mL : (sepsis) is : progression to severepossible, but : systemic infection.other conditions : The patient should beare known to : closely monitoredelevate PCT. : both clinically andby re-assessing PCTwithin 6-24 hours. PCT > 2 ng/mL : Systemic infection: High risk for(sepsis) is likely: progression to severeunless other : systemic infection.causes are known. : PCT >= 10 ng/mL : Important systemic: High likelihood ofinflammatory : severe sepsis orresponse, almost : septic shock.exclusively due to:severe bacterial :sepsis or septic :shock. : . PROGRESS AND PROCEDURES Course of Care: Dilaudid 1 mg Iv times 2 BC times 2 Levaquin 750 mg IV Solumedrol 80 mg IV Patient is stable. Symptoms better. Discussed case with on-call health care provider, (Maria Elena). Reviewed test results. Agreed upon treatment plan. Health care provider will see patient in ED. Patient/family counseled. Old medical records ordered. Disposition orders written. Disposition: Discharged. CLINICAL IMPRESSION Syncope of unknown cause .12 lead EKG performed. Bilateral pulmonary infiltrates. Pleuritic chest pain. (Electronically signed by Alan Alexander MD 02/03/2017 7:28)
--- NOTE | 2017-02-02 20:02 | ED ORDER SUMMARY ---
..... Patient: ROLANDO GARBER OrderSheet [facility] VisitID: [id number] [place] [address] 36y, F Registration Date/Time: 02/02/2017 ORDER SHEET Weight: 75.7 kg (stated) Allergies: Aspirin, Ibuprofen, Penicillin, Sulfa Antibiotics GENERAL ORDERS: CBC w Diff Urgent (18:04 02/02/2017 Neto MCKINLEY) (Ack 18:07 KARLIEurca ER Tech1) (18:50 EHassan R.N.) CRP Urgent (18:04 02/02/2017 Neto MCKINLEY) (Ack 18:07 Amena ER Tech1) (18:50 EHassan R.N.) ESR Urgent (18:04 02/02/2017 Neto MCKINLEY) (Ack 18:07 Amena ER Tech1) (18:50 EHassan R.N.) PCT (Procalcitonin) Urgent (18:04 02/02/2017 Neto MCKINLEY) (Ack 18:07 Abhia ER Tech1) (18:50 EHassan R.N.) Chest 2V Urgent (18:04 02/02/2017 Neto MCKINLEY) (Ack 18:07 Abhia ER Tech1) (18:23 MCampbell) D-Dimer Urgent (18:05 02/02/2017 Neto MCKINLEY) (Ack 18:07 Amena ER Tech1) (18:50 EHassan R.N.) - (orthostatic BP/P) (18:07 02/02/2017 Neto MCKINLEY) (18:32 Abhia ER Tech1) BNP Urgent (18:35 02/02/2017 Neto MCKINLEY) (Ack 18:36 Abhia ER Tech1) (18:50 EHassan R.N.) CPK Urgent (18:37 02/02/2017 Neto MCKINLEY) (Ack 18:42 KARLIEurca ER Tech1) (18:50 EHassan R.N.) Troponin-I Urgent (18:37 02/02/2017 Neto MCKINLEY) (Ack 18:42 IJurca ER Tech1) (18:50 EHassan R.N.) EKG - ER Stat (18:38 02/02/2017 Neto MCKINLEY) (Ack 18:42 IJurca ER Tech1) (19:16 EHassan R.N.) Blood Culture (No) (N/A) Urgent (20:16 02/02/2017 Neto MCKINLEY) (Ack 20:18 SRedmond) (21:37 EHherneston R.N.) CTA Thorax w Cont (No) (N/A) Urgent (20:17 02/02/2017 Neto MCKINLEY) (Ack 20:18 SRedmond) (20:49 SRedmond) CMP Urgent (20:54 02/02/2017 Neto MCKINLEY) (Ack 21:05 SRedmond) (21:37 Angelina R.N.) MEDICATION ORDERS: IV FLUIDS: Dilaudid IV 1 mg (NOW) (18:04 02/02/2017 Neto MCKINLEY) (18:51 EHherneston R.N.) Ativan IV 1 mg (NOW) (18:04 02/02/2017 Neto MCKINLEY) (18:51 Angelina R.N.) IV Saline Lock (18:05 02/02/2017 Neto MCKINLEY) (Cancelled: Other18:05 Neto MCKINLEY) IV NS : initial bolus 500 mL (1000 mL/hr), then 250 mL/hr for 4h (NOW); Routine (18:05 02/02/2017 Neto MCKINLEY) (18:52 EHassan R.N.) Dilaudid IV 1 mg (NOW) (19:34 02/02/2017 Neto MCKINLEY) (Ack 19:37 MAURAollier R.N.) (19:45 Nick R.N.) Levaquin IV 750 mg/150 mL (NOW) (20:17 02/02/2017 Neto MCKINLEY) (21:16 Angelina R.N.) Solu-MEDROL IV 80 mg (NOW) (20:17 02/02/2017 Neto MCKINLEY) (21:19 EHassan R.N.) ORDER SHEET NOTES: [Electronically signed by Myranda Ley R.N. (23:02/02/2017)] [Electronically signed by Alan Alexander MD (07:28 02/03/2017)] [Electronically locked/signed by Myranda Ley R.N. (:10 02/02/2017)]
--- NOTE | 2017-02-02 20:02 | ED ORDER SUMMARY ---
..... Patient: ROLANDO GARBER OrderSheet [facility] VisitID: [id number] [place] [address] 36y, F Registration Date/Time: 02/02/2017 ORDER SHEET Weight: 75.7 kg (stated) Allergies: Aspirin, Ibuprofen, Penicillin, Sulfa Antibiotics GENERAL ORDERS: CBC w Diff Urgent (18:04 02/02/2017 Neto MCKINLEY) (Ack 18:07 KARLIEurca ER Tech1) (18:50 EHassan R.N.) CRP Urgent (18:04 02/02/2017 Neto MCKINLEY) (Ack 18:07 Amena ER Tech1) (18:50 EHassan R.N.) ESR Urgent (18:04 02/02/2017 Neto MCKINLEY) (Ack 18:07 Amena ER Tech1) (18:50 EHassan R.N.) PCT (Procalcitonin) Urgent (18:04 02/02/2017 Neto MCKINLEY) (Ack 18:07 Abhia ER Tech1) (18:50 EHassan R.N.) Chest 2V Urgent (18:04 02/02/2017 Neto MCKINLEY) (Ack 18:07 Abhia ER Tech1) (18:23 MCampbell) D-Dimer Urgent (18:05 02/02/2017 Neto MCKINLEY) (Ack 18:07 Amena ER Tech1) (18:50 EHassan R.N.) - (orthostatic BP/P) (18:07 02/02/2017 Neto MCKINLEY) (18:32 Abhia ER Tech1) BNP Urgent (18:35 02/02/2017 Neto MCKINLEY) (Ack 18:36 Abhia ER Tech1) (18:50 EHassan R.N.) CPK Urgent (18:37 02/02/2017 Neto MCKINLEY) (Ack 18:42 KARLIEurca ER Tech1) (18:50 EHassan R.N.) Troponin-I Urgent (18:37 02/02/2017 Neto MCKINLEY) (Ack 18:42 IJurca ER Tech1) (18:50 EHassan R.N.) EKG - ER Stat (18:38 02/02/2017 Neto MCKINLEY) (Ack 18:42 IJurca ER Tech1) (19:16 EHassan R.N.) Blood Culture (No) (N/A) Urgent (20:16 02/02/2017 Neto MCIKNLEY) (Ack 20:18 SRedmond) (21:37 EHherneston R.N.) CTA Thorax w Cont (No) (N/A) Urgent (20:17 02/02/2017 Neto MCKINLEY) (Ack 20:18 SRedmond) (20:49 SRedmond) CMP Urgent (20:54 02/02/2017 Neto MCKINLEY) (Ack 21:05 SRedmond) (21:37 Angelina R.N.) MEDICATION ORDERS: IV FLUIDS: Dilaudid IV 1 mg (NOW) (18:04 02/02/2017 Neto MCKINLEY) (18:51 EHherneston R.N.) Ativan IV 1 mg (NOW) (18:04 02/02/2017 Neto MCKINLEY) (18:51 Angelina R.N.) IV Saline Lock (18:05 02/02/2017 Neto MCKINLEY) (Cancelled: Other18:05 Neto MCKINLEY) IV NS : initial bolus 500 mL (1000 mL/hr), then 250 mL/hr for 4h (NOW); Routine (18:05 02/02/2017 Neto MCKINLEY) (18:52 EHassan R.N.) Dilaudid IV 1 mg (NOW) (19:34 02/02/2017 Neto MCKINLEY) (Ack 19:37 MAURAollier R.N.) (19:45 Nick R.N.) Levaquin IV 750 mg/150 mL (NOW) (20:17 02/02/2017 Neto MCKINLEY) (21:16 Angelina R.N.) Solu-MEDROL IV 80 mg (NOW) (20:17 02/02/2017 Neto MCKINLEY) (21:19 EHassan R.N.) ORDER SHEET NOTES: [Electronically signed by Myranda Ley R.N. (23:02/02/2017)] [Electronically signed by Alan Alexander MD (07:28 02/03/2017)] [Electronically locked/signed by Myranda Ley R.N. (:10 02/02/2017)]
--- NOTE | 2017-02-02 21:35 | DIAGNOSTIC IMAGING REPORT ---
PROCEDURE: CTA THORAX WITH CONTRAST INDICATION: CHEST PAIN TECHNIQUE: 84 ml of Isovue 370 was injected intravenously and axial images were obtained of the chest with 3D sagittal and coronal MIP reconstructions. COMPARISON: X-ray performed the same day FINDINGS: Normal opacification of the pulmonary arterial tree without filling defect. The main pulmonary outflow tract is mildly dilated measuring 3.3 cm. Pulmonary arteries are of normal caliber. Thoracic aorta is normal caliber. The great vessels demonstrate a normal branching pattern. Mild cardiomegaly. No pericardial effusion. No adenopathy or mediastinal masses. Azygos fissure morphology. The esophagus is normal in caliber without hiatal hernia. The thyroid gland is normal. Minor patchy alveolar opacities in the lingula, lateral left lower lobe, and medial right middle lobe adjacent to there is also mild interstitial thickening in the right lower lobe and posterior left lower lobe. Mild thickening of the right major fissure. The airway is patent and branches normally. No pleural effusions or pneumothorax. Osseous structures are intact. The images obtained of the upper abdomen are normal. IMPRESSION: 1. No pulmonary embolus. 2. Mixed interstitial and alveolar opacities in the right middle lobe, lingula, and left lower lobe, likely secondary to mild interstitial edema. 3. Mild cardiomegaly. 4. Mild pulmonary outflow tract enlargement suggestive of early or mild pulmonary hypertension. Correlate clinically. 5. Findings called to the emergency room.
--- NOTE | 2017-02-02 21:45 | Progress Note ---
Subjective General CC: dyspnea shortness of breath Other Admission History and Physical Examination Patient Name: Chito Ortez Admission Date: 02/03/2016 Primary Care Provider: [facility]; [facility]. Attending Physician: Johnny Arredondo MD Admitting Physician: Johnny Arredondo MD Code Status: Full Room: 209 SUBJECTIVE Historian: patient Reliability: Fair Chief Complaint: Dyspnea Syncope Chest pain with breathing History of Present Illness: The patient is a 36-year-old white female with a significant past medical history of SLE, ,Chronic joint pain, nicotine dependence-smoking who presented to [facility] emergency department on the day of admission secondary to complaints of Shortness of breath and Unrelenting pain in the chest with breathing. [facility] ER evaluation was consistent adaptive pulmonary chnanges with bilateral pulmonary infiltrates, elevated BNP. Secondary to the above, the patient was admitted by Johnny Arredondo M.D. for further evaluation and treatment. Patient reports that her symptoms began more than 6 days ago. Patient recalls that she began having cough, shortness of breath and fullness in the chest. Patient states that she does not recall fever or chills during that initial episode. Due to progressive cough and shortness of breath. Patient was taken to [facility] through the emergency department and found to be in respiratory distress. Patient reports that she had pulse ox for saturations in reduced down to 80% on room air. Patient states that she was held in the hospital at [facility] for 2-3 days. Patient reports that she left the hospital AMA late this afternoon due to unanswered questions at the time of her bronchoscopy. Associated BAL. Patient states that she was not reported on the per seizure therefore elected to leave the hospital for other alternatives. Patient also reported that she was not pain control during her stay at [facility]. Patient reports that she was given Dilaudid and oxycodone and this did not touch her pain. Patient reports that she's had significant difficulty with breathing for the past few days. Patient reports that she has a history of smoking more than a half pack per day for the last 20+ years. Patient reports that her last cigarette was on Monday and she did not feel right after smoking. According to the record, the patient was admitted for respiratory distress or failure with hypoxia. Patient was given oxygen delivery through mask and nasal cannula during her side. Patient was also treated with azithromycin for 3+ days. Records also indicate the patient had a BAL performed during her bronchoscopy. Results of which are not available at this time. Patient has a past medical history of systemic lupus erythematosus. Patient was seen by rheumatology in the past and given methotrexate and Plaquenil for the illness. She reports that her last treatment was over 10 years ago. Patient reports that she was unable to afford further care and therefore has not continued over the past 5-10 years. Patient reports of progressive swelling of the hands and feet. Patient's never had any prior respiratory illness. She has no history of cardiac failure, no prior history of pulmonary failure. Patient reports that she was seen in the past for kidney illness, but does not recall the diagnosis. Patient reports that she's had positive ANAs in the past. PAST MEDICAL HISTORY Illnesses: 1. Systemic lupus erythematosus 2. Uterine fibroids, ovarian cyst Allergies: 1. NKDA Medications: 1. None Surgery: 1. Total hysterectomy leaving right ovary 2004. 2. Injuries: 1. None sustaining Hospitalizations: 1. prior surgical procedure FAMILY HISTORY Parents: 1. Father, alive, hx htn, DM, 2. Mother, SLE Siblings: 1. unknown Children: 1. two prior pregnancies Other significant family history: none SOCIAL HISTORY 1. Marital Status: none 2. Yarsanism: uknown 3. Education: unknown 4. Employment History: unknown 5. Occupational health exposures: unknown HABITS 1. Tobacco: Half pack per day. 2. Drugs: Former history of drug use 3. Alcohol: Unknown 4. Caffeine: Unknown HEALTH SUPERVISION Item/Test Pap/pelvic exam: Hysterectomy 2 years ago Mammogram: Prior mammography the past 6 months. Cholesterol Profile: Prior cholesterol; unknown values IMMUNIZATIONS: 1. Pneumococcal: none 2. Influenza:decline 3. Tetanus: unknown ADVANCED DIRECTIVES: Code Status: Full code REVIEW OF SYSTEMS Remarkable for those things stated in the history of present illness and past medical history. Seventeen point review of system completed with the following notable findings: General: Fatigue, pain, Nose: Nasal drainage, soreness Respiratory: Shortness of breath, cough, wheezing, Cardiovascular:, shortness of breath with exertion and lying flat Musculoskeletal: Back ache, joint stiffness Psychological: insomnia, anxiety, Physical Exam Vital Signs / I&Os T 98.4 HR 68 RR 16 BP 139/63 Saturation 95% RA General Appearance Oriented X3, Cooperative, Mild distress HEENT Atraumatic, PERRLA, EOMI Lungs decreased air movement, random wheeze, tachypnea, tenderness to palpation along the left anterolateral chest wall Breasts No discharge, subjective lumps noted in the left breast Neck No JVD, 2+ carotid pulse wo bruit Cardiovascular Regular rate and rhythm, Normal S1 and S2, No murmurs, gallops, rubs Abdomen Soft, No guarding Extremities No cyanosis, No clubbing, swelling b/l hands with bleeding from the cuticle. Skin Cuticles of the hands are chaffed and bleeding. Neurological Cranial nerves intact, No lateralizing signs Psych/Mental Status Mental status normal (anxious) LAB Results Laboratory Tests 02/02 02/02 02/02 02/02 02/02 1804 1840 1840 1840 1840 Chemistry Plasma Sodium (136 - 145 mmol/L) 142 Plasma Potassium (3.5 - 5.1 mmol/L) 4.3 Plasma Chloride (98 - 107 mmol/L) 107 CO2 (Enzymatic) (21 - 32 mmol/L) 25 BUN (7 - 18 mg/dL) 19 Creatinine (0.6 - 1.3 mg/dL) 0.9 Est GFR ( Amer) (mL/min) >60 Est GFR (Non-Af Amer) (mL/min) >60 Glucose (70 - 110 mg/dL) 139 Plasma Calcium (8.5 - 10.1 mg/dL) 8.6 Total Bilirubin (0.0 - 1.0 mg/dL) 0.1 AST (15 - 37 U/L) 21 ALT (12 - 78 U/L) 47 Alkaline Phosphatase (46 - 116 U/L) 92 Creatine Kinase (24 - 260 U/L) 45 Troponin (0.00 - 1.5 ng/mL) <0.05 C-Reactive Protein (0.0 - 0.9 mg/dL) Cancelled 1.4 B-Natriuretic Peptide (5 - 100 pg/ml) 267 Total Protein (6.4 - 8.2 g/dL) 6.7 Albumin (3.3 - 5.0 g/dL) 2.9 Procalcitonin (0 - 0.5 ng/mL) <0.5 Hematology WBC (4.5 - 11.5 K/uL) 14.3 RBC (4.00 - 5.20 M/uL) 4.17 Hgb (12.0 - 16.0 gm/dL) 11.7 Hct (36.0 - 46.0 %) 35.5 MCV (80 - 100 fL) 85 MCH (26 - 34 pg) 28 RDW (11.6 - 14.8 %) 13.2 Neut % (Auto) (50 - 75 %) 83.8 Lymph % (Auto) (25 - 40 %) 14.3 Letcher % (Auto) (3 - 14 %) 1.6 Eos % (Auto) (0 - 4 %) 0 Baso % (Auto) (0 - 2 %) 0.3 Plt Count, EDTA (150 - 400 K/uL) 427 PUBS MCHC (31 - 37 g/dL) 33 ESR Westergren (0 - 20 mm/hr) 8 02/02 1855 Coagulation D-Dimer, Quantitative (0.27 - 0.52 ug/mLFEU) < 0.27 Microbiology Date/Time Procedure - Status Source Growth 02/02 2255 Blood Culture - RECD BLOOD 02/02 2255 Blood Culture - RECD BLOOD 02/02 2142 Influenza Screen - ORD NASALPHAR Imaging PROCEDURE: CTA THORAX WITH CONTRAST MPRESSION: 1. No pulmonary embolus. 2. Mixed interstitial and alveolar opacities in the right middle lobe, lingula, and left lower lobe, likely secondary to mild interstitial edema. 3. Mild cardiomegaly. 4. Mild pulmonary outflow tract enlargement suggestive of early or mild pulmonary hypertension. Correlate clinically. PROCEDURE: XR CHEST 2 VIEW IMPRESSION: 1. Moderate interstitial and alveolar changes throughout the lungs. Consider acute pneumonitis (e.g., viral, Mycoplasma, aspiration). 2. Mild cardiomegaly and pulmonary vascular congestion. Consider congestive heart failure and/or pulmonary edema associated with lupus. Assessment and Plan Problem List 1. Pulmonary infiltrates Plan Infiltrates are noted. Other considerations would be related to this with lupus erythematosus itself. Would also consider potential cardiac involvement with signs of failure. Therefore, is recommended the patient have echocardiogram. This can be done tomorrow or in the morning. Recommend the patient be seen in observation overnight to monitor respiratory status. There are clear signs of mild pulmonary edema. 2. Dyspnea Plan Patient is not necessarily dyspneic on exertion but having difficulty with time with breathing. Patient states that she is unable to catch her breath. She is not necessarily hypoxic or respiratory failure, at this time. Patient will be on antibiotic therapy along telemetry; progress will be monitored 3. Syncope Plan Episode of syncope occurring prior to her arrival to the [facility] EGD. We'll plan to put the patient on monitors including telemetry. E&M Codes Admission: Inpt-Moderate/82684
[2017-02-02 22:52] VITALS: BP 150/97
[2017-02-03] VITALS (7 sets, daily range): BP systolic 130–148; BP diastolic 73–93
[2017-02-03] MEDS ORDERED: GABAPENTIN800 MG PO (01:37)
[2017-02-03] MEDS ORDERED: GABAPENTIN600 MG PO (01:37)
[2017-02-03] MEDS ORDERED: OMEPRAZOLE20 M1 PO (01:39)
[2017-02-03] MEDS ORDERED: AMITRIPTYLINE H10 MG PO (01:40)
[2017-02-03] MEDS ORDERED: RANITIDINE HCL150 MG PO (01:42)
[2017-02-03] MEDS ORDERED: PREDNISONE1 MG PO (01:43)
[2017-02-03] MEDS ORDERED: NARATRIPTAN HCL1 MG PO (01:43)
[2017-02-03] MEDS ORDERED: PREDNISONE1 MG (01:44)
--- NOTE | 2017-02-03 07:30 | ED MED RECONCILIATION SUMMARY ---
Patient: ROLANDO GARBER Medication Reconciliation Report [facility] VisitID: [id number] [address] [place] [address] 36y, F Registration Date/Time: 02/02/2017 Weight: 75.7 kg Height/Length: 62 in. BMI: 30.6 ALLERGIES: Aspirin, Ibuprofen, Penicillin, Sulfa Antibiotics The patient's Home Medications are listed below: THE FOLLOWING MEDICATIONS NEED TO BE RECONCILED: Faodylywkg-VYBZ-Yvrv-Cod Oral Gabapentin Oral Naratriptan HCl Oral Omeprazole Oral Ranitidine HCl Oral Zofran Oral The source(s) of the original Home Medication information: patient The following Medications were given to the patient in the Emergency Department: Dilaudid [IVP] IVP 1 mg, administered: 02/02/2017 6:46:00 PM Ativan [IVP] IVP 1 mg, administered: 02/02/2017 6:51:00 PM IV NS IV Fluids bolus 0, then 999 mL/hr, administered: 02/02/2017 6:52:00 PM Dilaudid [IVP] IVP 1 mg, administered: 02/02/2017 7:42:00 PM Levaquin [IVPB] IVPB bolus 0, then 750 mg 150 mL/hr, administered: 02/02/2017 9:16:00 PM SOLU-MEDROL [IVP] IVP 80 mg, administered: 02/02/2017 9:19:00 PM The following Medications were prescribed to the patient: None.
--- NOTE | 2017-02-03 07:30 | ED DISCHARGE INSTRUCTIONS ---
Patient: ROLANDO GARBER General Instructions [facility] VisitID: [id number] [place] [address] 36y, F Registration Date/Time: 02/02/2017 Syncope of unknown cause .12 lead EKG performed. Bilateral pulmonary infiltrates. Pleuritic chest pain. ADDITIONAL INFORMATION Fainting:Uncertain Cause Fainting (syncope) is a temporary loss of consciousness ("passing out"). It occurs when blood flow to the brain is reduced. Near-fainting ("near-syncope") is very similar to fainting, but you do not fully "pass out". The common minor causes of fainting include: sudden fear, pain, nausea, emotional stress and overexertion. Suddenly standing up after sitting or lying for a long time can also cause fainting. The more serious causes for fainting are due to either a very slow or very fast or very slow heart beat ("arrhythmia"), other types of heart disease, dehydration, blood loss, seizure, stroke or ruptured blood vessel in the brain. Taking too much high blood pressure medicine can also cause low blood pressure and fainting. The exact cause of your episode is not certain. However, the tests today did not show any of the serious causes of fainting. Sometimes further testing is needed to find out if a serious problem exists. Therefore, it is important that you follow-up with your doctor as advised. Home Care: 1) Rest today. You may resume your normal activities when you are feeling back to normal. It is best to remain with someone who can check on you for the next 24 hours to watch for another episode of fainting. 2) If you become light-headed or dizzy, lie down immediately or sit with your head between your knees. 3) Because we do not know the exact cause of your near fainting spell, it is possible for another spell to occur without warning. Therefore, do not drive a car or operate dangerous equipment, do not take a bath alone (use a shower instead) and do not swim alone until your doctor says that you are no longer in danger of having another fainting spell. Follow Up with your doctor as advised. Get Prompt Medical Attention if any of the following occur: -- Another fainting spell occurs, which is not explained by the common causes listed above -- Chest, arm, neck, jaw, back or abdominal pain -- Shortness of breath -- Severe headache or seizure -- Blood in vomit, stools (black or red color) -- Unexpected vaginal bleeding -- Palpitations (very rapid or very slow or irregular heart beat) -- Signs of stroke: Weakness of an arm or leg or one side of the face Difficulty with speech or vision Extreme drowsiness, confusion, dizziness or fainting You have been given the following additional information: Syncope, Unk Cause (Electronically signed by Alan Alexander MD 02/03/2017 7:28)
--- NOTE | 2017-02-03 07:30 | ED MED RECONCILIATION SUMMARY ---
Patient: ROLANDO GARBER Medication Reconciliation Report [facility] VisitID: [id number] [address] [place] [address] 36y, F Registration Date/Time: 02/02/2017 Weight: 75.7 kg Height/Length: 62 in. BMI: 30.6 ALLERGIES: Aspirin, Ibuprofen, Penicillin, Sulfa Antibiotics The patient's Home Medications are listed below: THE FOLLOWING MEDICATIONS NEED TO BE RECONCILED: Sljmhknyts-KBZS-Cvcg-Cod Oral Gabapentin Oral Naratriptan HCl Oral Omeprazole Oral Ranitidine HCl Oral Zofran Oral The source(s) of the original Home Medication information: patient The following Medications were given to the patient in the Emergency Department: Dilaudid [IVP] IVP 1 mg, administered: 02/02/2017 6:46:00 PM Ativan [IVP] IVP 1 mg, administered: 02/02/2017 6:51:00 PM IV NS IV Fluids bolus 0, then 999 mL/hr, administered: 02/02/2017 6:52:00 PM Dilaudid [IVP] IVP 1 mg, administered: 02/02/2017 7:42:00 PM Levaquin [IVPB] IVPB bolus 0, then 750 mg 150 mL/hr, administered: 02/02/2017 9:16:00 PM SOLU-MEDROL [IVP] IVP 80 mg, administered: 02/02/2017 9:19:00 PM The following Medications were prescribed to the patient: None.
--- NOTE | 2017-02-03 07:30 | ED MAR SUMMARY ---
..... Medication Administration Record [facility] [address] [place] [address] Patient: ROLANDO GARBER Visit ID: [id number] 36y, F Weight: 75.7 kg Height/Length: 62 in BMI: 30.6 ALLERGIES: Aspirin, Ibuprofen, Penicillin, Sulfa Antibiotics Given 18:46 02/02/2017 Myranda Ley R.N. Medication Administered: DILAUDID [IVP] (HYDROMORPHONE HCL PF), Dose: 1 mg IVP over 1 minute(s), Site: #1 right AC. Medication Ordered: Dilaudid IV 1 mg (NOW). Given 18:51 02/02/2017 Myranda Ley R.N. Medication Administered: ATIVAN [IVP] (LORAZEPAM), Dose: 1 mg IVP over 1 minute(s), Site: #1 right AC. Medication Ordered: Ativan IV 1 mg (NOW). Start 18:52 02/02/2017 Myranda Ley R.N., Stop 22:30 02/02/2017 Myranda Ley R.N. Medication Administered: IV NS (SALINE), Dose: IV Fluids over 1 hour(s), Rate: 999 mL/hr, Dispensed: 999 mL bag, Site: #1 right AC. Medication Ordered: IV NS : initial bolus 500 mL (1000 mL/hr), then 250 mL/hr for 4h (NOW); Routine. Given 19:42 02/02/2017 Chhaya Mosley R.N. Medication Administered: DILAUDID [IVP] (HYDROMORPHONE HCL PF), Dose: 1 mg IVP over 1 minute(s), Site: #1 right AC. Medication Ordered: Dilaudid IV 1 mg (NOW). Start 21:16 02/02/2017 Myranda Ley R.N., Continued Upon Disposition 22:30 02/02/2017 Myranda Ley R.N. Medication Administered: LEVAQUIN [IVPB] (LEVOFLOXACIN), Dose: 750 mg IVPB over 1.5 hour(s), Rate: 150 mL/hr, Dispensed: 150 mL bag, Site: #1 right AC. Medication Ordered: Levaquin IV 750 mg/150 mL (NOW). Given 21:19 02/02/2017 Myranda Ley R.N. Medication Administered: SOLU-MEDROL [IVP] (METHYLPREDNISOLONE SODIUM SUCC), Dose: 80 mg IVP over 2 minute(s), Site: #1 right AC. Medication Ordered: Solu-MEDROL IV 80 mg (NOW).
--- NOTE | 2017-02-03 07:30 | ED MAR SUMMARY ---
..... Medication Administration Record [facility] [address] [place] [address] Patient: ROLANDO GARBER Visit ID: [id number] 36y, F Weight: 75.7 kg Height/Length: 62 in BMI: 30.6 ALLERGIES: Aspirin, Ibuprofen, Penicillin, Sulfa Antibiotics Given 18:46 02/02/2017 Myranda Ley R.N. Medication Administered: DILAUDID [IVP] (HYDROMORPHONE HCL PF), Dose: 1 mg IVP over 1 minute(s), Site: #1 right AC. Medication Ordered: Dilaudid IV 1 mg (NOW). Given 18:51 02/02/2017 Myranda Ley R.N. Medication Administered: ATIVAN [IVP] (LORAZEPAM), Dose: 1 mg IVP over 1 minute(s), Site: #1 right AC. Medication Ordered: Ativan IV 1 mg (NOW). Start 18:52 02/02/2017 Myranda Ley R.N., Stop 22:30 02/02/2017 Myranda Ley R.N. Medication Administered: IV NS (SALINE), Dose: IV Fluids over 1 hour(s), Rate: 999 mL/hr, Dispensed: 999 mL bag, Site: #1 right AC. Medication Ordered: IV NS : initial bolus 500 mL (1000 mL/hr), then 250 mL/hr for 4h (NOW); Routine. Given 19:42 02/02/2017 Chhaya Mosley R.N. Medication Administered: DILAUDID [IVP] (HYDROMORPHONE HCL PF), Dose: 1 mg IVP over 1 minute(s), Site: #1 right AC. Medication Ordered: Dilaudid IV 1 mg (NOW). Start 21:16 02/02/2017 Myranda Ley R.N., Continued Upon Disposition 22:30 02/02/2017 Myranda Ley R.N. Medication Administered: LEVAQUIN [IVPB] (LEVOFLOXACIN), Dose: 750 mg IVPB over 1.5 hour(s), Rate: 150 mL/hr, Dispensed: 150 mL bag, Site: #1 right AC. Medication Ordered: Levaquin IV 750 mg/150 mL (NOW). Given 21:19 02/02/2017 Myranda Ley R.N. Medication Administered: SOLU-MEDROL [IVP] (METHYLPREDNISOLONE SODIUM SUCC), Dose: 80 mg IVP over 2 minute(s), Site: #1 right AC. Medication Ordered: Solu-MEDROL IV 80 mg (NOW).
--- NOTE | 2017-02-03 07:56 | Progress Note ---
Subjective General Note Date: February 03, 2017 Admission Date: February 02, 2017 Hospital Day: 2 PCP: None Status: Inpatient Advanced Directive: FULL CODE Room: 209-B Brief History: The patient is a 36-year-old white female with a significant past medical history of SLE, ,Chronic joint pain, nicotine dependence-smoking who presented to [facility] emergency department on the day of admission secondary to complaints of Shortness of breath and Unrelenting pain in the chest with breathing. [facility] ER evaluation was consistent adaptive pulmonary chnanges with bilateral pulmonary infiltrates, elevated BNP. Secondary to the above, the patient was admitted by Johnny Arredondo M.D. for further evaluation and treatment. For other history present illness, past medical history, family history, social history, review of systems, and admission physical examination please see the patient's history and physical examination and ER visit note in the patient's medical record. Subjective: The patient continues to complain of chest discomfort. As for IV narcotics to be pushed close to proximal port quickly. We will attempt to switch to oral pain medications. Patient requests: Improved pain control Medications and Allergies Medications Current Medications Sig/Cecilio Start time Last Medication Dose Route Stop Time Status Admin Pantoprazole Sodium 40 MG DAILY@0600 02/03 0600 AC 02/03 Sesquihydrate PO 0542 Nicotine 21 MG QAM 02/03 0100 AC 02/03 TOP 0100 Hydromorphone HCl 1 MG Q6H PRN 02/03 0045 AC 02/03 IV 0651 Lorazepam 1 MG Q8H PRN 02/03 0045 AC 02/03 IV 0100 Levofloxacin/Dextrose 150 ML 0 02/02 2300 AC IV Al Hydrox/Mg Hydrox/ 15 ML Q1H PRN 02/02 2200 AC Simethicone PO Atropine Sulfate 0.5 MG Q3MIN PRN 02/02 2200 AC IV Lidocaine HCl See Dose ONCE PRN 02/02 2200 AC Insts (1) IV Magnesium Hydroxide 10 ML DAILY PRN 02/02 2200 AC PO Morphine Sulfate 2 MG Q3MIN PRN 02/02 2200 AC IV Nitroglycerin 0.4 MG Q5MIN PRN 02/02 2200 AC SL Acetaminophen 650 MG Q6H PRN 02/02 2145 AC PO Albuterol/Ipratropium 3 ML RTQ6H PRN 02/02 2145 AC IN Sodium Chloride 1,000 ML ASDIRECTED 02/02 2130 AC 02/03 IV 02/03 220 0015 Dose Instructions: (1)Lidocaine HCl: 1.5 MG/KG Allergies Coded Allergies: Sulfa Antibiotics (Severe, 02/03/17) Oxycodone (Mild, RESTLESS LEG SYNDROME 02/03/17) Penicillin G (From Penicillin Potassium-G) (02/02/17) Uncoded Allergies: ASPIRIN (Severe, GI ULCER 02/03/17) IBUPROFEN (Severe, GI ULCER 02/03/17) Physical Exam Vital Signs / I&Os Vital Signs Date Time Temp Pulse Resp B/P Pulse O2 O2 Flow FiO2 Ox Delivery Rate 02/03 0645 97.9 48 20 134/73 96 Room Air 0.0 02/03 0332 98.4 68 16 139/83 95 Room Air 02/03 0033 Nasal 2.0 Cannula 02/03 0017 2.0 02/03 0006 78 20 138/87 97 Nasal 2.0 Cannula 02/02 2252 98.1 52 16 150/97 95 Room Air I&O 02/03 0000 02/02 1600 02/02 0800 Intake Total Output Total Balance General Appearance Alert, Oriented X3, Cooperative, No acute distress Lungs Clear to auscultation, Normal air movement Cardiovascular Regular rate and rhythm, Normal S1 and S2 Abdomen Normal bowel sounds, Soft, No tenderness Extremities No cyanosis, No clubbing, No edema Neurological Cranial nerves intact, No lateralizing signs Psych/Mental Status Mental status normal, Mood normal LAB Results Laboratory Tests 02/03 02/03 02/02 02/02 0534 0400 1855 1840 Chemistry Plasma Sodium (136 - 145 mmol/L) 140 Plasma Potassium (3.5 - 5.1 mmol/L) 4.3 Plasma Chloride (98 - 107 mmol/L) 107 CO2 (Enzymatic) (21 - 32 mmol/L) 25 BUN (7 - 18 mg/dL) 24 Creatinine (0.6 - 1.3 mg/dL) 0.8 Est GFR ( Amer) (mL/min) >60 Est GFR (Non-Af Amer) (mL/min) >60 Glucose (70 - 110 mg/dL) 184 Plasma Calcium (8.5 - 10.1 mg/dL) 8.2 Total Bilirubin (0.0 - 1.0 mg/dL) 0.1 AST (15 - 37 U/L) 18 ALT (12 - 78 U/L) 47 Alkaline Phosphatase (46 - 116 U/L) 85 Total Protein (6.4 - 8.2 g/dL) 6.1 Albumin (3.3 - 5.0 g/dL) 2.6 Procalcitonin (0 - 0.5 ng/mL) <0.5 TSH 3rd Generation (0.34 - 3.74 uIU/mL) 0.823 Cancelled Coagulation D-Dimer, Quantitative (0.27 - 0.52 ug/mLFEU) < 0.27 Hematology WBC (4.5 - 11.5 K/uL) 16.3 RBC (4.00 - 5.20 M/uL) 4.09 Hgb (12.0 - 16.0 gm/dL) 11.3 Hct (36.0 - 46.0 %) 35.1 MCV (80 - 100 fL) 86 MCH (26 - 34 pg) 28 RDW (11.6 - 14.8 %) 13.0 Neut % (Auto) (50 - 75 %) 85.7 Lymph % (Auto) (25 - 40 %) 11.6 [place] % (Auto) (3 - 14 %) 2.3 Eos % (Auto) (0 - 4 %) 0 Baso % (Auto) (0 - 2 %) 0.4 Plt Count, EDTA (150 - 400 K/uL) 388 PUBS MCHC (31 - 37 g/dL) 32 Immunology NADJA Screen Pending 02/02 02/02 02/02 02/02 1840 1840 1840 1804 Chemistry Plasma Sodium (136 - 145 mmol/L) 142 Plasma Potassium (3.5 - 5.1 mmol/L) 4.3 Plasma Chloride (98 - 107 mmol/L) 107 CO2 (Enzymatic) (21 - 32 mmol/L) 25 BUN (7 - 18 mg/dL) 19 Creatinine (0.6 - 1.3 mg/dL) 0.9 Est GFR ( Amer) (mL/min) >60 Est GFR (Non-Af Amer) (mL/min) >60 Glucose (70 - 110 mg/dL) 139 Plasma Calcium (8.5 - 10.1 mg/dL) 8.6 Total Bilirubin (0.0 - 1.0 mg/dL) 0.1 AST (15 - 37 U/L) 21 ALT (12 - 78 U/L) 47 Alkaline Phosphatase (46 - 116 U/L) 92 Creatine Kinase (24 - 260 U/L) 45 Troponin (0.00 - 1.5 ng/mL) <0.05 C-Reactive Protein (0.0 - 0.9 mg/dL) 1.4 Cancelled B-Natriuretic Peptide (5 - 100 pg/ml) 267 Total Protein (6.4 - 8.2 g/dL) 6.7 Albumin (3.3 - 5.0 g/dL) 2.9 Hematology WBC (4.5 - 11.5 K/uL) 14.3 RBC (4.00 - 5.20 M/uL) 4.17 Hgb (12.0 - 16.0 gm/dL) 11.7 Hct (36.0 - 46.0 %) 35.5 MCV (80 - 100 fL) 85 MCH (26 - 34 pg) 28 RDW (11.6 - 14.8 %) 13.2 Neut % (Auto) (50 - 75 %) 83.8 Lymph % (Auto) (25 - 40 %) 14.3 [place] % (Auto) (3 - 14 %) 1.6 Eos % (Auto) (0 - 4 %) 0 Baso % (Auto) (0 - 2 %) 0.3 Plt Count, EDTA (150 - 400 K/uL) 427 PUBS MCHC (31 - 37 g/dL) 33 ESR Westergren (0 - 20 mm/hr) 8 Microbiology Date/Time Procedure - Status Source Growth 02/03 0500 MRSA Screen - COLB NASAL 02/02 2255 Blood Culture - RECD BLOOD 02/02 2255 Blood Culture - RECD BLOOD 02/02 2142 Influenza Screen - COLB NASALPHAR Imaging CTA Chest IMPRESSION: 1. No pulmonary embolus. 2. Mixed interstitial and alveolar opacities in the right middle lobe, lingula, and left lower lobe, likely secondary to mild interstitial edema. 3. Mild cardiomegaly. 4. Mild pulmonary outflow tract enlargement suggestive of early or mild pulmonary hypertension. Correlate clinically. 5. Findings called to the emergency room. Dictated by: ALIREZA GONZALEZ MD D: VASU;02/02/17 6202 Assessment and Plan Problem List 1. Pulmonary infiltrates Plan -Unclear etiology -Mild leukocytosis without fever. -Continue Levaquin 750 mg by mouth/IV daily -Recheck CBC with manual differential, CRP, and Procalcitonin a.m. -Outpatient follow-up with pulmonary medicine. -Overweight BAL obtained at [facility]. 2. Dyspnea Plan -Resolved -O2 sats normal on room air -Monitor 3. Syncope Plan -Patient with history of syncope/lightheadedness -Echocardiogram ordered -No clear signs of CHF however BNP borderline elevated -Monitor Current status: Fair, stable Anticipated discharge date: Anticipated discharge in a.m. Anticipated discharge placement: Home Patient care time: Time spent in chart review, patient interview, physical exam, CPOE, and care documentation: 25 minutes Visit to patient today: 2 Complexity of care: Moderate E&M Codes Rounding: Inpt-Moderate/[id number]
[2017-02-04 01:59] VITALS: BP 120/70
[2017-02-04 06:19] VITALS: BP 130/77
--- NOTE | 2017-02-04 07:15 | Progress Note ---
Subjective General Note Date: February 04, 2017 Admission Date: February 02, 2017 Hospital Day: 3 PCP: None Status: Inpatient Advanced Directive: FULL CODE Room: 209-B Brief History: The patient is a 36-year-old white female with a significant past medical history of SLE, ,Chronic joint pain, nicotine dependence-smoking who presented to [facility] emergency department on the day of admission secondary to complaints of Shortness of breath and Unrelenting pain in the chest with breathing. [facility] ER evaluation was consistent adaptive pulmonary chnanges with bilateral pulmonary infiltrates, elevated BNP. Secondary to the above, the patient was admitted by Johnny Arredondo M.D. for further evaluation and treatment. For other history present illness, past medical history, family history, social history, review of systems, and admission physical examination please see the patient's history and physical examination and ER visit note in the patient's medical record. Subjective: Status much improved. Patient ready for discharge Patient requests: None Medications and Allergies Medications Current Medications Sig/Cecilio Start time Last Medication Dose Route Stop Time Status Admin Magnesium Citrate 300 ML 1300 02/06 1300 AC PO 02/06 1301 Bisacodyl 10 MG 02/06 0900 AC AL 02/06 0901 Polyethylene Glycol 17 GM 02/05 0900 AC PO 02/05 0901 Magnesium Hydroxide 10 ML 02/04 0900 AC PO 02/04 0901 Oxycodone/ See Dose Q6H PRN 02/03 2145 AC 02/04 Acetaminophen Insts (1) PO 0624 Docusate Sodium 100 MG BID 02/03 2100 AC 02/03 PO 02/04 0901 2046 Levofloxacin/Dextrose 150 ML QHS 02/03 2100 AC 02/03 IV 2046 Levofloxacin/Dextrose 150 ML DAILY 02/03 2100 CAN IV Zolpidem Tartrate 10 MG QHS PRN 02/03 1845 AC 02/03 PO 2353 Ketorolac 30 MG Q6H PRN 02/03 1015 AC 02/03 Tromethamine IV 1852 Insulin Human Lispro See Dose ACHS 02/03 0900 AC 02/03 Insts (2) SC 2044 Pantoprazole Sodium 40 MG DAILY@0600 02/03 0600 AC 02/04 Sesquihydrate PO 0621 Nicotine 21 MG QAM 02/03 0100 AC 02/03 TOP 0922 Lorazepam 1 MG Q8H PRN 02/03 0045 AC 02/03 IV 2056 Al Hydrox/Mg Hydrox/ 15 ML Q1H PRN 02/02 2200 AC Simethicone PO Atropine Sulfate 0.5 MG Q3MIN PRN 02/02 2200 AC IV Lidocaine HCl See Dose ONCE PRN 02/02 2200 AC Insts (3) IV Magnesium Hydroxide 10 ML DAILY PRN 02/02 2200 AC PO Morphine Sulfate 2 MG Q3MIN PRN 02/02 2200 AC 02/04 IV 0448 Nitroglycerin 0.4 MG Q5MIN PRN 02/02 2200 AC SL Acetaminophen 650 MG Q6H PRN 02/02 2145 AC 02/03 PO 0922 Albuterol/Ipratropium 3 ML RTQ6H PRN 02/02 2145 AC IN Dose Instructions: (1)Oxycodone/Acetaminophen: 1 - 2 TABLETS (2)Insulin Human Lispro: LOW DOSE SLIDING SCALE (3)Lidocaine HCl: 1.5 MG/KG Allergies Coded Allergies: Sulfa Antibiotics (Severe, 02/03/17) Hydrocodone (Anxiety, NAUSEA AND VOMITING, RESTLESS LEGS 02/03/17) Penicillin G (From Penicillin Potassium-G) (02/02/17) Uncoded Allergies: ASPIRIN (Severe, GI ULCER 02/03/17) IBUPROFEN (Severe, GI ULCER 02/03/17) Physical Exam Vital Signs / I&Os Vital Signs Date Time Temp Pulse Resp B/P Pulse O2 O2 Flow FiO2 Ox Delivery Rate 02/04 0619 98.4 59 20 130/77 96 Room Air 0.0 02/04 0159 97.7 57 18 120/70 92 02/03 2355 Room Air 0.0 02/03 2250 97.9 53 131/82 02/03 1832 98.1 72 20 130/81 96 Room Air 02/03 1353 98.1 65 20 140/93 97 Room Air 0.0 02/03 1039 97.9 59 22 148/79 97 Room Air 0.0 02/03 0750 Room Air I&O 02/04 0000 02/03 1600 02/03 0800 Intake Total 1036 866 805 Output Total 700 300 400 Balance 336 566 405 General Appearance Alert, Oriented X3, Cooperative, No acute distress Lungs Clear to auscultation, Normal air movement Cardiovascular Normal exam Abdomen Normal bowel sounds, Soft, No tenderness LAB Results Laboratory Tests 02/03 02/03 1815 1815 Chemistry C-Reactive Protein (0.0 - 0.9 mg/dL) 0.6 Procalcitonin (0 - 0.5 ng/mL) <0.5 Hematology WBC (4.5 - 11.5 K/uL) 16.2 RBC (4.00 - 5.20 M/uL) 4.41 Hgb (12.0 - 16.0 gm/dL) 12.3 Hct (36.0 - 46.0 %) 37.8 MCV (80 - 100 fL) 86 MCH (26 - 34 pg) 28 RDW (11.6 - 14.8 %) 12.9 Neut % (Auto) (50 - 75 %) 52 Lymph % (Auto) (25 - 40 %) 42 [place] % (Auto) (3 - 14 %) 4 Eos % (Auto) (0 - 4 %) 1 Baso % (Auto) (0 - 2 %) 0 Band Neutrophils % (0 - 8 %) 1 Metamyelocytes % (0 - 1 %) 0 Myelocytes (0 - 1 %) 0 Other Cell Type 0 Plt Count, EDTA (150 - 400 K/uL) 404 [place] Cells 1+ PUBS MCHC (31 - 37 g/dL) 33 Microbiology Date/Time Procedure - Status Source Growth 02/03 193 MRSA Screen - CAN NASAL Cancelled: DUPLICATE ORDER. SEE [id number] Assessment and Plan Problem List 1. Pulmonary infiltrates Plan -status improved -WBC improved -Afebrile -Discharge home today on Levaquin 750 mg by mouth daily follow-up with PCP/ pulmonary medicine next week- -See discharge summary. 2. Dyspnea Plan -resolved Current status: good, improved Anticipated discharge date: Today Anticipated discharge placement: Home Patient care time: Time spent in chart review, patient interview, physical exam, CPOE, and care documentation: 30 minutes Visit to patient today: 2 Complexity of care: Moderate E&M Codes Discharge: Observation - All/[id number]
--- NOTE | 2017-02-04 08:37 | Discharge Summary ---
Discharge Summary Report Admit Date 02/02/17 Discharge Date 02/04/17 1. Pulmonary infiltrates rule out pneumonia 2.
--- NOTE | 2017-02-04 08:37 | Discharge Summary ---
Discharge Summary Report Admit Date 02/02/17 Discharge Date 02/04/17 1. Pulmonary infiltrates rule out pneumonia 2.
[2017-02-04 10:21] VITALS: BP 132/75
[2017-02-04] MEDS ORDERED: LEVAQUIN750 MG PO (10:32)
[2017-02-04] MEDS ORDERED: NICOTINE T21 MG/24 H TOP (10:32)
[2017-02-04] MEDS ORDERED: OXYCODONE/ACETA1 TA1 PO (10:35)
--- NOTE | 2017-02-04 10:37 | Provider's Discharge Care Plan ---
Problem, Goal, Plan Problem List 1. Pulmonary infiltrates Goals: Improve disease control, Prevent disease progress Instructions: Follow up as directed, Take meds as directed
--- NOTE | 2017-02-04 10:37 | Provider's Discharge Care Plan ---
Problem, Goal, Plan Problem List 1. Pulmonary infiltrates Goals: Improve disease control, Prevent disease progress Instructions: Follow up as directed, Take meds as directed
--- NOTE | 2017-02-05 09:04 | Discharge Summary ---
Discharge Summary Report Admit Date 02/02/17 Discharge Date 02/04/17 Admission Diagnosis 1. Pulmonary infiltrates 2. Dyspnea 3. Nicotine dependence-smoking Discharge Diagnosis 1. Pulmonary infiltrates-pneumonia 2. Dyspnea 3. Nicotine dependence-smoking Brief History The patient is a 36-year-old white female with a significant past medical history of SLE, ,Chronic joint pain, nicotine dependence-smoking who presented to [facility] emergency department on the day of admission secondary to complaints of Shortness of breath and Unrelenting pain in the chest with breathing. [facility] ER evaluation was consistent adaptive pulmonary chnanges with bilateral pulmonary infiltrates, elevated BNP. Secondary to the above, the patient was admitted by Johnny Arredondo M.D. for further evaluation and treatment. For other history present illness, past medical history, family history, social history, review of systems, and admission physical examination please see the patient's history and physical examination and ER visit note in the patient's medical record. Hospital Course The following problems and their management were noted during the patient's hospitalization: 1. Pulmonary infiltrates-pneumonia The patient presented with history of dyspnea, chest pain, and pulmonary infiltrates. She was treated with Levaquin 750 mg by mouth daily. Her white count improved. Her chest pain improved. In overall she is much better at the time of discharge. She had no further dyspnea on exertion. O2 saturation was normal on room air. She was discharged to be followed up by her PCP and referred to [facility] pulmonary medicine division for further evaluation. She has been instructed to follow-up with her college specialist to discuss recent BAL performed at [facility]. The patient had mild elevation of BNP on admission. She had no signs of CHF. She should follow-up with her PCP/college specialist for scheduling of outpatient echocardiogram. 2. Dyspnea Resolved 3. Nicotine dependence-smoking The patient has a history of nicotine dependence-smoking. She underwent smoking cessation education. She was encouraged to follow a smoking abstinence program post discharge. Nicotine patch when necessary General Appearance Alert, Oriented X3, Cooperative, No acute distress Lungs Clear to auscultation, Normal air movement Cardiovascular Regular Rate, Normal S1, Normal S2, No murmurs, Gallops, Rubs Abdomen Normal bowel sounds, Soft, No tenderness Neurological Normal gait, Strength at 5/5 X4 ext, Cranial nerves 3-12 NL Psych/Mental Status Mental status NL, Mood NL Lab/Imaging Laboratory Tests 02/04 02/04 0905 0905 Chemistry Plasma Sodium (136 - 145 mmol/L) 141 Plasma Potassium (3.5 - 5.1 mmol/L) 3.8 Plasma Chloride (98 - 107 mmol/L) 105 CO2 (Enzymatic) (21 - 32 mmol/L) 26 BUN (7 - 18 mg/dL) 16 Creatinine (0.6 - 1.3 mg/dL) 0.8 Est GFR ( Amer) (mL/min) >60 Est GFR (Non-Af Amer) (mL/min) >60 Glucose (70 - 110 mg/dL) 95 Plasma Calcium (8.5 - 10.1 mg/dL) 8.0 Total Bilirubin (0.0 - 1.0 mg/dL) 0.3 AST (15 - 37 U/L) 18 ALT (12 - 78 U/L) 45 Alkaline Phosphatase (46 - 116 U/L) 85 C-Reactive Protein (0.0 - 0.9 mg/dL) 0.3 Total Protein (6.4 - 8.2 g/dL) 5.9 Albumin (3.3 - 5.0 g/dL) 2.4 Procalcitonin (0 - 0.5 ng/mL) <0.5 Hematology WBC (4.5 - 11.5 K/uL) 13.0 RBC (4.00 - 5.20 M/uL) 4.78 Hgb (12.0 - 16.0 gm/dL) 13.3 Hct (36.0 - 46.0 %) 40.7 MCV (80 - 100 fL) 85 MCH (26 - 34 pg) 28 RDW (11.6 - 14.8 %) 12.8 Neut % (Auto) (50 - 75 %) 52 Lymph % (Auto) (25 - 40 %) 39 [place] % (Auto) (3 - 14 %) 6 Eos % (Auto) (0 - 4 %) 3 Baso % (Auto) (0 - 2 %) 0 Band Neutrophils % (0 - 8 %) 0 Metamyelocytes % (0 - 1 %) 0 Myelocytes (0 - 1 %) 0 Other Cell Type 0 Plt Count, EDTA (150 - 400 K/uL) 440 RBC Morphology NORMAL RBC POP PUBS MCHC (31 - 37 g/dL) 33 Discharge Instructions/Meds Please see the patient's discharge instructions Greater than 30 minutes was spent in the patient's discharge preparation. The patient was seen and examined on the day of discharge E&M Codes Discharge: Inpt >30 min spent/[id number]
--- NOTE | 2017-02-05 09:04 | Discharge Summary ---
Discharge Summary Report Admit Date 02/02/17 Discharge Date 02/04/17 Admission Diagnosis 1. Pulmonary infiltrates 2. Dyspnea 3. Nicotine dependence-smoking Discharge Diagnosis 1. Pulmonary infiltrates-pneumonia 2. Dyspnea 3. Nicotine dependence-smoking Brief History The patient is a 36-year-old white female with a significant past medical history of SLE, ,Chronic joint pain, nicotine dependence-smoking who presented to [facility] emergency department on the day of admission secondary to complaints of Shortness of breath and Unrelenting pain in the chest with breathing. [facility] ER evaluation was consistent adaptive pulmonary chnanges with bilateral pulmonary infiltrates, elevated BNP. Secondary to the above, the patient was admitted by Johnny Arredondo M.D. for further evaluation and treatment. For other history present illness, past medical history, family history, social history, review of systems, and admission physical examination please see the patient's history and physical examination and ER visit note in the patient's medical record. Hospital Course The following problems and their management were noted during the patient's hospitalization: 1. Pulmonary infiltrates-pneumonia The patient presented with history of dyspnea, chest pain, and pulmonary infiltrates. She was treated with Levaquin 750 mg by mouth daily. Her white count improved. Her chest pain improved. In overall she is much better at the time of discharge. She had no further dyspnea on exertion. O2 saturation was normal on room air. She was discharged to be followed up by her PCP and referred to [facility] pulmonary medicine division for further evaluation. 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 The patient had mild elevation of BNP on admission. She had no signs of CHF. She should follow-up with her PCP/soil conservation aide for scheduling of outpatient echocardiogram. 2. Dyspnea Resolved 3. Nicotine dependence-smoking The patient has a history of nicotine dependence-smoking. She underwent smoking cessation education. She was encouraged to follow a smoking abstinence program post discharge. Nicotine patch when necessary General Appearance Alert, Oriented X3, Cooperative, No acute distress Lungs Clear to auscultation, Normal air movement Cardiovascular Regular Rate, Normal S1, Normal S2, No murmurs, Gallops, Rubs Abdomen Normal bowel sounds, Soft, No tenderness Neurological Normal gait, Strength at 5/5 X4 ext, Cranial nerves 3-12 NL Psych/Mental Status Mental status NL, Mood NL Lab/Imaging Laboratory Tests 02/04 02/04 0905 0905 Chemistry Plasma Sodium (136 - 145 mmol/L) 141 Plasma Potassium (3.5 - 5.1 mmol/L) 3.8 Plasma Chloride (98 - 107 mmol/L) 105 CO2 (Enzymatic) (21 - 32 mmol/L) 26 BUN (7 - 18 mg/dL) 16 Creatinine (0.6 - 1.3 mg/dL) 0.8 Est GFR ( Amer) (mL/min) >60 Est GFR (Non-Af Amer) (mL/min) >60 Glucose (70 - 110 mg/dL) 95 Plasma Calcium (8.5 - 10.1 mg/dL) 8.0 Total Bilirubin (0.0 - 1.0 mg/dL) 0.3 AST (15 - 37 U/L) 18 ALT (12 - 78 U/L) 45 Alkaline Phosphatase (46 - 116 U/L) 85 C-Reactive Protein (0.0 - 0.9 mg/dL) 0.3 Total Protein (6.4 - 8.2 g/dL) 5.9 Albumin (3.3 - 5.0 g/dL) 2.4 Procalcitonin (0 - 0.5 ng/mL) <0.5 Hematology WBC (4.5 - 11.5 K/uL) 13.0 RBC (4.00 - 5.20 M/uL) 4.78 Hgb (12.0 - 16.0 gm/dL) 13.3 Hct (36.0 - 46.0 %) 40.7 MCV (80 - 100 fL) 85 MCH (26 - 34 pg) 28 RDW (11.6 - 14.8 %) 12.8 Neut % (Auto) (50 - 75 %) 52 Lymph % (Auto) (25 - 40 %) 39 [place] % (Auto) (3 - 14 %) 6 Eos % (Auto) (0 - 4 %) 3 Baso % (Auto) (0 - 2 %) 0 Band Neutrophils % (0 - 8 %) 0 Metamyelocytes % (0 - 1 %) 0 Myelocytes (0 - 1 %) 0 Other Cell Type 0 Plt Count, EDTA (150 - 400 K/uL) 440 RBC Morphology NORMAL RBC POP PUBS MCHC (31 - 37 g/dL) 33 Discharge Instructions/Meds Please see the patient's discharge instructions Greater than 30 minutes was spent in the patient's discharge preparation. The patient was seen and examined on the day of discharge E&M Codes Discharge: Inpt >30 min spent/[id number]
== END 2017-02-04 11:45 | disposition home or self-care (01) ==
LOC: ED SRH 17:04 → TRANS SRH 20:11 → ACUTE2 SRH 20:11
PROVIDERS: ADMIT Emergency Medicine
DX: J18.9 Pneumonia, unspecified organism (principal); F17.210 Nicotine dependence, cigarettes, uncomplicated; R55 Syncope and collapse; M32.9 Systemic lupus erythematosus, unspecified
CPT/HCPCS: 29230; 29244; 29251; 29259; 29264; 90065; 90074; 90098; 90100; 90616; 91286; 91295; 91320; 91556; 91585; 91643; 92610; 92912; 93004; 93140; 95059; 95061; 95150

== ENCOUNTER 2017-02-22 11:03 | Emergency (ER) | payer OTHER ==
[~2017-02-22 11:03] MED LIST: AMITRIPTYLINE H10 MG PO; GABAPENTIN600 MG PO; GABAPENTIN800 MG PO; LEVAQUIN750 MG PO; NARATRIPTAN HCL1 MG PO; NICOTINE T21 MG/24 H TOP; OMEPRAZOLE20 M1 PO; OXYCODONE/ACETA1 TA1 PO; PREDNISONE1 MG; PREDNISONE1 MG PO; RANITIDINE HCL150 MG PO
--- NOTE | 2017-02-22 12:52 | DIAGNOSTIC IMAGING REPORT ---
PROCEDURE: XR CHEST 2 VIEW INDICATION: SHORTNESS OF BREATH TECHNIQUE: PA and lateral views. COMPARISON: Chest 02/02/2017 FINDINGS: Lungs are clear. There has been resolution of the previous infiltrates. Heart and mediastinum are normal. Thorax is normal. IMPRESSION: 1. Resolution of previous infiltrates. Lungs clear.
--- NOTE | 2017-02-22 15:09 | ED CLINICAL REPORT ---
Clinical Report - Physicians/Mid Levels [facility] [address] [place] [address] 02/22/2017 11:03 Patient: ROLANDO GARBER Time Seen: 12:06 Feb 22 2017. Arrived- By private vehicle. Historian- patient. CPT: ER phys charges level 4 (#[id number]). HISTORY OF PRESENT ILLNESS Chief Complaint: DYSPNEA and bilateral thigh pain and swelling. (Admitted 3 weeks ago for lupus flare associated with syncope, pulmonary infiltrates and dyspnea. Better on steroids but ran out 1 week ago and now symptoms back. Has a rx for a plaquenil like drug which is at the pharmacy right now. Has not taken it yet.). Is still present. The dyspnea is described as moderate and is worsened by walking and exertion and is improved by rest. No cough, sputum production, fever or sweating episodes. No chest pain or discomfort or calf pain. She has had dyspnea on exertion and anxiety. She has had mild right and left foot swelling. Similar symptoms previously: Worse. Hospitalized. Diagnosis: (SLE). Recent medical care: Not recently seen/assessed. REVIEW OF SYSTEMS The patient has not had weight loss. She has had moderate muscle aches (Right and left thighs.). No sore throat, nasal discharge, sinus drainage, nausea or vomiting. No abdominal pain, diarrhea, black stools, bloody stools or fainting episodes. No skin rash or enlarged lymph nodes. She has had moderate joint pain, involving the right hand and left hand. 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 Has seen imaging tech and hand sizer. Is supposed to start plaquenil but did not pickle pumper the rx yet. Syncope. Laceration. Sprain. Abdominal Pain. Pyelonephritis. UTI - Urinary Tract Infection. Wound Infection. Headache. Abscess. Systemic Lupus Erythematosus. Hidradenitis Suppurativa. Ureterolithiasis. Lifestyle / Substance Problems. Fibromyalgia. Seizure. Cervical Strain. Seizure Disorder. . ADDITIONAL SURGERIES: . Hysterectomy. Lithotripsy. Sweat gland removal. Tubal Ligation. Medications: Lqqgmhcrif-KIUF-Osvt-Cod Oral. Gabapentin Oral. Naratriptan HCl Oral. Omeprazole Oral. Ranitidine HCl Oral. Zofran Oral. Allergies: Aspirin. Ibuprofen. Penicillin. Sulfa Antibiotics. SOCIAL HISTORY Heavy tobacco smoker (cigarette)- less than 1 pack per day. ADDITIONAL NOTES The nursing notes have been reviewed. PHYSICAL EXAM Vital Signs: 02/22/2017 11:14 BP: 133/87. HR: 105. RR: 20. O2 saturation: 100%. Temp: 98.2 F. Appearance: Alert. Patient in mild distress. Eyes: Pupils equal, round and reactive to light. Eyes normal inspection. ENT: Ears normal. Nose normal. Pharynx normal. Uvula midline. Neck: Normal inspection. No jugular venous distention. Neck supple. CVS: Normal heart rate and rhythm. Heart sounds normal. Pulses normal. Respiratory: No respiratory distress. Breath sounds normal. Abdomen: Soft and nontender. Back: Normal inspection. Skin: Skin warm. Normal skin color. No rash. Extremities: Extremities exhibit normal ROM. No lower extremity edema. (tender hands . tender over the anterior thighs). Neuro: Oriented X 3. No motor deficit. No sensory deficit. Reflexes normal. LABS, X-RAYS, AND EKG Chest X-ray: (Resolution of prior infiltrates.). Views: PA and lateral. Technique: good. The X-rays were independently viewed by me and interpreted by the radiologist. Laboratory Tests: CBC w Diff: (BRITANY: 02/22/2017 11:28) ( MsgRcvd 02/22/2017 12:51) Final results Test Result Flag Units (Reference) WHITE BLOOD COUNT 11.4 K/uL (4.5-11.5) RED BLOOD COUNT 5.09 M/uL (4.00-5.20) HEMOGLOBIN 14.3 gm/dL (12.0-16.0) HEMATOCRIT 43.2 % (36.0-46.0) MEAN CELL VOLUME 85 fL (80-100) MEAN CORPUSCULAR HGB 28 pg (26-34) MEAN CORPUSCULAR HGB CONC 33 g/dL (31-37) RED CELL DISTRIBUTION WIDTH 14.3 % (11.6-14.8) PLATELET COUNT 297 K/uL (150-400) NEUTROPHIL % 73.7 % (50-75) LYMPH % 18.6 L % (25-40) MONO % 5.3 % (3-14) EOSINOPHIL % 1.7 % (0-4) BASOPHIL % 0.7 % (0-2) SED RATE WESTERGREN 3 mm/hr (0-20) [id number]: (BRITANY: 02/22/2017 11:28) ( [facility] 02/22/2017 14:53) Final results Test Result Flag Units (Reference) D-DIMER QUANTITATIVE 0.14 L ug/mLFEU (0.27-0.52) The primary value of this quantitative assay relates toits negative predictive value (i.e. exclusion) of pulmonaryembolism/deep vein thrombosis/DIC.Elevated levels of d-dimer may also occur with:, age, cancer, inflammation, liver disease,post-op, infection, hematoma, coronary disease, peripheralarteriopathy, bleeding disorders and thrombolytic treatment.Results should be correlated with other clinical andradiological data.Testing Methodology: Latex Immunoassay BNP: (BRITANY: 02/22/2017 11:28) ( [facility] 02/22/2017 15:12) Final results Test Result Flag Units (Reference) B-TYPE NATRIURETIC PEPTIDE < 5.0 L pg/ml (5-100) [id number]: (BRITANY: 02/22/2017 11:38) ( [facility] 02/22/2017 14:35) Final results Test Result Flag Units (Reference) C-REACTIVE PROTEIN 5.3 H mg/dL (0.0-0.9) CMP: (BRITANY: 02/22/2017 11:28) ( [facility] 02/22/2017 13:19) Final results Test Result Flag Units (Reference) GLUCOSE 104 mg/dL (70-110) BUN 9 mg/dL (7-18) CREATININE 0.8 mg/dL (0.6-1.3) Estimated GFR >60 mL/min Estimated GFR- >60 mL/min Note: Persistent reduction over 3 months in eGFR<60 mL/min/1.73 m2 defines CKD. Patients with eGFR values>=60 mL/min/1.73 m2 may also have CKD if evidence ofpersistent proteinuria. Additional information may be foundat www.kidney.org. SODIUM 136 mmol/L (136-145) POTASSIUM 3.8 mmol/L (3.5-5.1) CHLORIDE 102 mmol/L (98-107) CARBON DIOXIDE 21 mmol/L (21-32) CALCIUM 8.8 mg/dL (8.5-10.1) TOTAL PROTEIN 7.6 g/dL (6.4-8.2) ALBUMIN 4.0 g/dL (3.3-5.0) BILIRUBIN, TOTAL 0.7 mg/dL (0.0-1.0) ALKALINE PHOSPHATASE 110 U/L (46-116) AST (SGOT) 18 U/L (15-37) ALT (SGPT) 30 U/L (12-78) CPK 53 U/L (24-260) . PROGRESS AND PROCEDURES Course of Care: Pt usually has an elevated ESR with the lupus flares but today ESR is 3. Pt feels like she is starting a flare due to her hand pain and breathing. Her CXR is much improved from recent hospitalization. She did come off steroids 1 week ago and has not started her plaquenil. The rx for the med is available to her today. Solumedrol 80 mg IV She will get plaquenil today. Patient/family counseled. Disposition: Discharged. Condition: stable. CLINICAL IMPRESSION Recurrent lupus. INSTRUCTIONS (Get plaquenil today and start taking it.). Warnings: Further evaluation is necessary. SEDATIVE MEDICATION: You were given sedative medication during your visit. Do not drive or operate dangerous machinery. Your Current Medications: CONTINUE TAKING THE FOLLOWING MEDICATIONS: Pcbxarhogs-ETVB-Epux-Cod Oral. Gabapentin Oral. Naratriptan HCl Oral. Omeprazole Oral. Ranitidine HCl Oral. Zofran Oral. Prescription Medications: Oxycodone/APAP 5 mg/325 mg: take 1 tablet orally every 6 hours as needed for pain. Dispense fifteen (15). No refills. prednisone 50 mg a day for 2 days. Follow-up: Follow up with a specialist Cath Lab Tech as scheduled. Understanding of the discharge instructions verbalized by patient. (Electronically signed by Alan Alexander MD 02/23/2017 10:11) Addenda for ROLANDO GARBER VisitID: [id number] Date: 02/22/2017 02/22/2017 12:19 Disposition status was"Admit to Hospital" not discharge as noted on chart. (Electronically signed by Alan Alexander MD - 02/22/2017 12:19) 02/23/2017 10:08 Above addendum is an error and should have been placed on the chart dated 02-02-17. (Electronically signed by Alan Alexander MD - 02/23/2017 10:08)
--- NOTE | 2017-02-22 15:09 | ED NURSING NOTES ---
Clinical Report - Nurses [facility] [address] [place] [address] 02/22/2017 11:03 Patient: ROLANDO GARBER TRIAGE Triage time 1105. Acuity: LEVEL 3. Chief Complaint: SHORTNESS OF BREATH and DIFFICULTY BREATHING and CHEST PAIN and BACK PAIN. Alert. No acute distress. (sob). --11:19 Migdalia Herndon 11:14 02/22/17. BP: 133/87. HR: 105. RR: 20. O2 saturation: 100%. Temp: 98.2 F. Pain level now 05/25. --11:19 Migdalia Herndon. Weight: 80.6 kg. Height/Length: 63 inches. BMI: 31.5. --11:14 Migdalia Herndon. Medications Gzgykyfrjx-GNTE-Iktu-Cod Oral. Gabapentin Oral. Naratriptan HCl Oral. Omeprazole Oral. Ranitidine HCl Oral. Zofran Oral. --11:16 Migdalia Herndon. Allergies Aspirin. Ibuprofen. Penicillin. Sulfa Antibiotics. --11:16 Migdalia Herndon. History Arrived by private vehicle. Historian: patient. This started last night. ( Pt sts she was dc'd from here or same a few weeks ago, sts it was from her "lupus attacking my lungs"). Treatment REHABILITATION CASE COORDINATOR: None. SOCIAL HX: Heavy tobacco smoker (cigarette)- less than 1 pack per day. --11:19 Migdalia Herndon. PROBLEMS: Syncope. Laceration. Sprain. Abdominal Pain. Pyelonephritis. UTI - Urinary Tract Infection. Wound Infection. Headache. Abscess. Systemic Lupus Erythematosus. Hidradenitis Suppurativa. Ureterolithiasis. Lifestyle / Substance Problems. Fibromyalgia. Seizure. Cervical Strain. Seizure Disorder. --11:16 Migdalia Herndon. ADDITIONAL SURGERIES: . Hysterectomy. Lithotripsy. Sweat gland removal. Tubal Ligation. --11:16 Migdalia Herndon. Interventions ID band on patient. To treatment room. --11:19 Migdalia Herndon. PHYSICAL ASSESSMENT Ambulatory to room. GENERAL / NEURO / PSYCH: Alert. Oriented X 4. Appears anxious and in distress. HEENT: Mucous membranes are pink. RESPIRATORY: Mild respiratory distress. The patient can speak in full sentences. Breath sounds within normal limits. CVS: Cardiac rhythm: sinus tachycardia. Capillary refill less than 2 seconds. GI / : Abdomen soft and nontender. Bowel sounds within normal limits. SKIN: Skin is warm and dry. Normal skin turgor. --11:21 Migdalia Herndon. NURSING PROGRESS NOTES Call light placed in reach. Side rails up x 1. Bed placed in lowest position. Brakes of bed on. Patient ready for evaluation- chart flagged. --11:21 Migdalia Herndon 11:44 02/22/2017 Site #1 started via IV in the right antecubital space with an 22g angiocath, with aseptic technique and good blood return; one attempt. Blood drawn: rainbow set. Labeled in the presence of the patient and sent to the lab. Saline lock flushed with 10 mL saline. --11:44 Migdalia Herndon The patient is calm and resting quietly. --12:46 Migdalia Herndon 12:38 02/22/17. BP: 127/86. HR: 95. RR: 18. O2 saturation: 100%. Pain level now 810. --12:46 Migdalia Herndon The patient is calm and resting quietly. Overall patient status is the same- she states feels the same. Patient waiting for disposition. --13:39 Migdalia Herndon 13:39 02/22/17. BP: 123/73. HR: 96. RR: 16. O2 saturation: 99%. Pain level now 8/10. --13:39 Migdalia Herndon 14:24 02/22/17. BP: 104/70. HR: 95. RR: 16. O2 saturation: 98%. Pain level now 8/10. --14:24 Migdalia Herndon The patient is resting quietly. --14:24 Migdalia Herndon 14:51 02/22/2017 SOLU-MEDROL (MethylPREDNISolone Sodium Succ) IVP 80 mg given over 1 minute(s) via site #1. Allergies verified and confirmed 5 rights. IV patency established. IV site checked: no pain, redness, or swelling. IV flushed thoroughly pre- and post-medication administration. IVP given by RN. --14:51 Migdalia Herndon 15:42 02/22/2017 Oxycodone-APAP (Oxycodone-Acetaminophen) PO 10/650 mg Tablets 2 tab given. Allergies verified, confirmed 5 rights and sedative warning given to the patient. --15:42 Migdalia Herndon 15:43 02/22/2017 Site #1 removed upon discharge. Pressure dressing applied. --15:43 Migdalia Herndon. DISPOSITION / DISCHARGE Departure time: 1540. Condition at departure: unchanged and stable. Discharge instructions provided and reviewed with the patient. Reviewed medication(s). Patient verbalized understanding. Written instructions provided in [place]. The patient was discharged by the physician. She was discharged home. She left the Emergency Department ambulatory and via private vehicle. Patient driving. --15:44 Migdalia Herndon 15:43 02/22/17. BP: 102/66. HR: 92. RR: 18. O2 saturation: 100%. Pain level now 05/25. --15:44 Migdalia Herndon. Locked/Released at 02/22/2017 15:44 by Migdalia Herndon,
--- NOTE | 2017-02-22 15:09 | ED CLINICAL REPORT ---
Clinical Report - Physicians/Mid Levels [facility] [address] [place] [address] 02/22/2017 11:03 Patient: ROLANDO GARBER Time Seen: 12:06 Feb 22 2017. Arrived- By private vehicle. Historian- patient. CPT: ER phys charges level 4 (#[id number]). HISTORY OF PRESENT ILLNESS Chief Complaint: DYSPNEA and bilateral thigh pain and swelling. (Admitted 3 weeks ago for lupus flare associated with syncope, pulmonary infiltrates and dyspnea. Better on steroids but ran out 1 week ago and now symptoms back. Has a rx for a plaquenil like drug which is at the pharmacy right now. Has not taken it yet.). Is still present. The dyspnea is described as moderate and is worsened by walking and exertion and is improved by rest. No cough, sputum production, fever or sweating episodes. No chest pain or discomfort or calf pain. She has had dyspnea on exertion and anxiety. She has had mild right and left foot swelling. Similar symptoms previously: Worse. Hospitalized. Diagnosis: (SLE). Recent medical care: Not recently seen/assessed. REVIEW OF SYSTEMS The patient has not had weight loss. She has had moderate muscle aches (Right and left thighs.). No sore throat, nasal discharge, sinus drainage, nausea or vomiting. No abdominal pain, diarrhea, black stools, bloody stools or fainting episodes. No skin rash or enlarged lymph nodes. She has had moderate joint pain, involving the right hand and left hand. 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 Has seen make up artist and language interpreter. Is supposed to start plaquenil but did not pickle cutter the rx yet. Syncope. Laceration. Sprain. Abdominal Pain. Pyelonephritis. UTI - Urinary Tract Infection. Wound Infection. Headache. Abscess. Systemic Lupus Erythematosus. Hidradenitis Suppurativa. Ureterolithiasis. Lifestyle / Substance Problems. Fibromyalgia. Seizure. Cervical Strain. Seizure Disorder. . ADDITIONAL SURGERIES: . Hysterectomy. Lithotripsy. Sweat gland removal. Tubal Ligation. Medications: Wbisldinoj-UKOU-Oqhg-Cod Oral. Gabapentin Oral. Naratriptan HCl Oral. Omeprazole Oral. Ranitidine HCl Oral. Zofran Oral. Allergies: Aspirin. Ibuprofen. Penicillin. Sulfa Antibiotics. SOCIAL HISTORY Heavy tobacco smoker (cigarette)- less than 1 pack per day. ADDITIONAL NOTES The nursing notes have been reviewed. PHYSICAL EXAM Vital Signs: 02/22/2017 11:14 BP: 133/87. HR: 105. RR: 20. O2 saturation: 100%. Temp: 98.2 F. Appearance: Alert. Patient in mild distress. Eyes: Pupils equal, round and reactive to light. Eyes normal inspection. ENT: Ears normal. Nose normal. Pharynx normal. Uvula midline. Neck: Normal inspection. No jugular venous distention. Neck supple. CVS: Normal heart rate and rhythm. Heart sounds normal. Pulses normal. Respiratory: No respiratory distress. Breath sounds normal. Abdomen: Soft and nontender. Back: Normal inspection. Skin: Skin warm. Normal skin color. No rash. Extremities: Extremities exhibit normal ROM. No lower extremity edema. (tender hands . tender over the anterior thighs). Neuro: Oriented X 3. No motor deficit. No sensory deficit. Reflexes normal. LABS, X-RAYS, AND EKG Chest X-ray: (Resolution of prior infiltrates.). Views: PA and lateral. Technique: good. The X-rays were independently viewed by me and interpreted by the radiologist. Laboratory Tests: CBC w Diff: (BRITANY: 02/22/2017 11:28) ( MsgRcvd 02/22/2017 12:51) Final results Test Result Flag Units (Reference) WHITE BLOOD COUNT 11.4 K/uL (4.5-11.5) RED BLOOD COUNT 5.09 M/uL (4.00-5.20) HEMOGLOBIN 14.3 gm/dL (12.0-16.0) HEMATOCRIT 43.2 % (36.0-46.0) MEAN CELL VOLUME 85 fL (80-100) MEAN CORPUSCULAR HGB 28 pg (26-34) MEAN CORPUSCULAR HGB CONC 33 g/dL (31-37) RED CELL DISTRIBUTION WIDTH 14.3 % (11.6-14.8) PLATELET COUNT 297 K/uL (150-400) NEUTROPHIL % 73.7 % (50-75) LYMPH % 18.6 L % (25-40) MONO % 5.3 % (3-14) EOSINOPHIL % 1.7 % (0-4) BASOPHIL % 0.7 % (0-2) SED RATE WESTERGREN 3 mm/hr (0-20) [id number]: (BRITANY: 02/22/2017 11:28) ( [facility] 02/22/2017 14:53) Final results Test Result Flag Units (Reference) D-DIMER QUANTITATIVE 0.14 L ug/mLFEU (0.27-0.52) The primary value of this quantitative assay relates toits negative predictive value (i.e. exclusion) of pulmonaryembolism/deep vein thrombosis/DIC.Elevated levels of d-dimer may also occur with:, age, cancer, inflammation, liver disease,post-op, infection, hematoma, coronary disease, peripheralarteriopathy, bleeding disorders and thrombolytic treatment.Results should be correlated with other clinical andradiological data.Testing Methodology: Latex Immunoassay BNP: (BRITANY: 02/22/2017 11:28) ( [facility] 02/22/2017 15:12) Final results Test Result Flag Units (Reference) B-TYPE NATRIURETIC PEPTIDE < 5.0 L pg/ml (5-100) [id number]: (BRITANY: 02/22/2017 11:38) ( [facility] 02/22/2017 14:35) Final results Test Result Flag Units (Reference) C-REACTIVE PROTEIN 5.3 H mg/dL (0.0-0.9) CMP: (BRITANY: 02/22/2017 11:28) ( [facility] 02/22/2017 13:19) Final results Test Result Flag Units (Reference) GLUCOSE 104 mg/dL (70-110) BUN 9 mg/dL (7-18) CREATININE 0.8 mg/dL (0.6-1.3) Estimated GFR >60 mL/min Estimated GFR- >60 mL/min Note: Persistent reduction over 3 months in eGFR<60 mL/min/1.73 m2 defines CKD. Patients with eGFR values>=60 mL/min/1.73 m2 may also have CKD if evidence ofpersistent proteinuria. Additional information may be foundat www.kidney.org. SODIUM 136 mmol/L (136-145) POTASSIUM 3.8 mmol/L (3.5-5.1) CHLORIDE 102 mmol/L (98-107) CARBON DIOXIDE 21 mmol/L (21-32) CALCIUM 8.8 mg/dL (8.5-10.1) TOTAL PROTEIN 7.6 g/dL (6.4-8.2) ALBUMIN 4.0 g/dL (3.3-5.0) BILIRUBIN, TOTAL 0.7 mg/dL (0.0-1.0) ALKALINE PHOSPHATASE 110 U/L (46-116) AST (SGOT) 18 U/L (15-37) ALT (SGPT) 30 U/L (12-78) CPK 53 U/L (24-260) . PROGRESS AND PROCEDURES Course of Care: Pt usually has an elevated ESR with the lupus flares but today ESR is 3. Pt feels like she is starting a flare due to her hand pain and breathing. Her CXR is much improved from recent hospitalization. She did come off steroids 1 week ago and has not started her plaquenil. The rx for the med is available to her today. Solumedrol 80 mg IV She will get plaquenil today. Patient/family counseled. Disposition: Discharged. Condition: stable. CLINICAL IMPRESSION Recurrent lupus. INSTRUCTIONS (Get plaquenil today and start taking it.). Warnings: Further evaluation is necessary. SEDATIVE MEDICATION: You were given sedative medication during your visit. Do not drive or operate dangerous machinery. Your Current Medications: CONTINUE TAKING THE FOLLOWING MEDICATIONS: Kjneuizful-KLVL-Zxky-Cod Oral. Gabapentin Oral. Naratriptan HCl Oral. Omeprazole Oral. Ranitidine HCl Oral. Zofran Oral. Prescription Medications: Oxycodone/APAP 5 mg/325 mg: take 1 tablet orally every 6 hours as needed for pain. Dispense fifteen (15). No refills. prednisone 50 mg a day for 2 days. Follow-up: Follow up with a specialist Bronzer as scheduled. Understanding of the discharge instructions verbalized by patient. (Electronically signed by Alan Alexander MD 02/23/2017 10:11) Addenda for ROLANDO GARBER VisitID: [id number] Date: 02/22/2017 02/22/2017 12:19 Disposition status was"Admit to Hospital" not discharge as noted on chart. (Electronically signed by Alan Alexander MD - 02/22/2017 12:19) 02/23/2017 10:08 Above addendum is an error and should have been placed on the chart dated 02-02-17. (Electronically signed by Alan Alexander MD - 02/23/2017 10:08)
--- NOTE | 2017-02-22 15:09 | ED ORDER SUMMARY ---
..... Patient: ROLANDO GARBER OrderSheet [facility] VisitID: [id number] [address] [place] [address] 36y, F Registration Date/Time: 02/22/2017 ORDER SHEET Weight: 80.6 kg Allergies: Aspirin, Ibuprofen, Penicillin, Sulfa Antibiotics GENERAL ORDERS: CBC w Diff Urgent (11:43 02/22/2017 EBonebonie per protocol) (Ack 11:57 KHoerner) (12:20 EBonham) CMP Urgent (11:43 02/22/2017 Anaya per protocol) (Ack 11:57 KHoerner) (12:20 EBonham) Chest 2V Urgent (12:19 02/22/2017 Neto MCKINLEY) (Ack 12:23 KHoerner) (12:32 KHoerner) CRP Urgent (12:20 02/22/2017 Neto MCKINLEY) (12:20 EBonham) ESR Urgent (12:20 02/22/2017 Neto MCKINLEY) (12:20 EBonham) CPK Urgent (13:00 02/22/2017 Neto MCKINLEY) (13:01 KHoerjesika) D-Dimer Urgent (14:34 02/22/2017 Neto MCKINLEY) (14:37 EBonham) BNP Urgent (14:34 02/22/2017 Neto MCKINLEY) (14:37 EBonebonie) ESR Urgent (15:02 02/22/2017 Neto MCKINLEY) (Ack 15:08 TBergley) MEDICATION ORDERS: Oxycodone-APAP PO 10/650 mg (NOW) (15:07 02/22/2017 Neto MCKINLEY) (15:42 EBonebonie) IV FLUIDS: IV Saline Lock (11:43 02/22/2017 Anaya per protocol) (11:44 EBonham) Solu-MEDROL IV 80 mg (NOW) (14:41 02/22/2017 Neto MCKINLEY) (14:51 EBonebonie) ORDER SHEET NOTES: [Electronically signed by Migdalia Herndon (15:44 02/22/2017)] [Electronically signed by Alan Alexander MD (10:11 02/23/2017)] [Electronically locked/signed by Migdalia Herndon (15:44 02/22/2017)]
--- NOTE | 2017-02-22 15:09 | ED NURSING NOTES ---
Clinical Report - Nurses [facility] [address] [place] [address] 02/22/2017 11:03 Patient: ROLANDO GARBER TRIAGE Triage time 1105. Acuity: LEVEL 3. Chief Complaint: SHORTNESS OF BREATH and DIFFICULTY BREATHING and CHEST PAIN and BACK PAIN. Alert. No acute distress. (sob). --11:19 Migdalia Herndon 11:14 02/22/17. BP: 133/87. HR: 105. RR: 20. O2 saturation: 100%. Temp: 98.2 F. Pain level now 05/25. --11:19 Migdalia Herndon. Weight: 80.6 kg. Height/Length: 63 inches. BMI: 31.5. --11:14 Migdalia Herndon. Medications Xagxizitkx-FCBM-Fohu-Cod Oral. Gabapentin Oral. Naratriptan HCl Oral. Omeprazole Oral. Ranitidine HCl Oral. Zofran Oral. --11:16 Migdalia Herndon. Allergies Aspirin. Ibuprofen. Penicillin. Sulfa Antibiotics. --11:16 Migdalia Herndon. History Arrived by private vehicle. Historian: patient. This started last night. ( Pt sts she was dc'd from here or same a few weeks ago, sts it was from her "lupus attacking my lungs"). 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 SOCIAL HX: Heavy tobacco smoker (cigarette)- less than 1 pack per day. --11:19 Migdalia Herndon. PROBLEMS: Syncope. Laceration. Sprain. Abdominal Pain. Pyelonephritis. UTI - Urinary Tract Infection. Wound Infection. Headache. Abscess. Systemic Lupus Erythematosus. Hidradenitis Suppurativa. Ureterolithiasis. Lifestyle / Substance Problems. Fibromyalgia. Seizure. Cervical Strain. Seizure Disorder. --11:16 Migdalia Herndon. ADDITIONAL SURGERIES: . Hysterectomy. Lithotripsy. Sweat gland removal. Tubal Ligation. --11:16 Migdalia Herndon. Interventions ID band on patient. To treatment room. --11:19 Migdalia Herndon. PHYSICAL ASSESSMENT Ambulatory to room. GENERAL / NEURO / PSYCH: Alert. Oriented X 4. Appears anxious and in distress. HEENT: Mucous membranes are pink. RESPIRATORY: Mild respiratory distress. The patient can speak in full sentences. Breath sounds within normal limits. CVS: Cardiac rhythm: sinus tachycardia. Capillary refill less than 2 seconds. GI / : Abdomen soft and nontender. Bowel sounds within normal limits. SKIN: Skin is warm and dry. Normal skin turgor. --11:21 Migdalia Herndon. NURSING PROGRESS NOTES Call light placed in reach. Side rails up x 1. Bed placed in lowest position. Brakes of bed on. Patient ready for evaluation- chart flagged. --11:21 Migdalia Herndon 11:44 02/22/2017 Site #1 started via IV in the right antecubital space with an 22g angiocath, with aseptic technique and good blood return; one attempt. Blood drawn: rainbow set. Labeled in the presence of the patient and sent to the lab. Saline lock flushed with 10 mL saline. --11:44 Migdalia Herndon The patient is calm and resting quietly. --12:46 Migdalia Herndon 12:38 02/22/17. BP: 127/86. HR: 95. RR: 18. O2 saturation: 100%. Pain level now 810. --12:46 Migdalia Herndon The patient is calm and resting quietly. Overall patient status is the same- she states feels the same. Patient waiting for disposition. --13:39 Migdalia Herndon 13:39 02/22/17. BP: 123/73. HR: 96. RR: 16. O2 saturation: 99%. Pain level now 8/10. --13:39 Migdalia Herndon 14:24 02/22/17. BP: 104/70. HR: 95. RR: 16. O2 saturation: 98%. Pain level now 8/10. --14:24 Migdalia Herndon The patient is resting quietly. --14:24 Migdalia Herndon 14:51 02/22/2017 SOLU-MEDROL (MethylPREDNISolone Sodium Succ) IVP 80 mg given over 1 minute(s) via site #1. Allergies verified and confirmed 5 rights. IV patency established. IV site checked: no pain, redness, or swelling. IV flushed thoroughly pre- and post-medication administration. IVP given by RN. --14:51 Migdalia Herndon 15:42 02/22/2017 Oxycodone-APAP (Oxycodone-Acetaminophen) PO 10/650 mg Tablets 2 tab given. Allergies verified, confirmed 5 rights and sedative warning given to the patient. --15:42 Migdalia Herndon 15:43 02/22/2017 Site #1 removed upon discharge. Pressure dressing applied. --15:43 Migdalia Herndon. DISPOSITION / DISCHARGE Departure time: 1540. Condition at departure: unchanged and stable. Discharge instructions provided and reviewed with the patient. Reviewed medication(s). Patient verbalized understanding. Written instructions provided in German. The patient was discharged by the physician. She was discharged home. She left the Emergency Department ambulatory and via private vehicle. Patient driving. --15:44 Migdalia Herndon 15:43 02/22/17. BP: 102/66. HR: 92. RR: 18. O2 saturation: 100%. Pain level now 05/25. --15:44 Migdalia Herndon. Locked/Released at 02/22/2017 15:44 by Migdalia Herndon,
--- NOTE | 2017-02-22 15:09 | ED ORDER SUMMARY ---
..... Patient: ROLANDO GARBER OrderSheet [facility] VisitID: [id number] [address] [place] [address] 36y, F Registration Date/Time: 02/22/2017 ORDER SHEET Weight: 80.6 kg Allergies: Aspirin, Ibuprofen, Penicillin, Sulfa Antibiotics GENERAL ORDERS: CBC w Diff Urgent (11:43 02/22/2017 EBonebonie per protocol) (Ack 11:57 KHoerner) (12:20 EBonham) CMP Urgent (11:43 02/22/2017 Anaya per protocol) (Ack 11:57 KHoerner) (12:20 EBonham) Chest 2V Urgent (12:19 02/22/2017 Neto MCKINLEY) (Ack 12:23 KHoerner) (12:32 KHoerner) CRP Urgent (12:20 02/22/2017 Neto MCKINLEY) (12:20 EBonham) ESR Urgent (12:20 02/22/2017 Neto MCKINLEY) (12:20 EBonham) CPK Urgent (13:00 02/22/2017 Neto MCKINLEY) (13:01 KHoerjesika) D-Dimer Urgent (14:34 02/22/2017 Neto MCKINLEY) (14:37 EBonham) BNP Urgent (14:34 02/22/2017 Neto MCKINLEY) (14:37 EBonebonie) ESR Urgent (15:02 02/22/2017 Neto MCKINLEY) (Ack 15:08 TBergley) MEDICATION ORDERS: Oxycodone-APAP PO 10/650 mg (NOW) (15:07 02/22/2017 Neto MCKINLEY) (15:42 EBonebonie) IV FLUIDS: IV Saline Lock (11:43 02/22/2017 Anaya per protocol) (11:44 EBonham) Solu-MEDROL IV 80 mg (NOW) (14:41 02/22/2017 Neto MCKINLEY) (14:51 EBonebonie) ORDER SHEET NOTES: [Electronically signed by Migdalia Herndon (15:44 02/22/2017)] [Electronically signed by Alan Alexander MD (10:11 02/23/2017)] [Electronically locked/signed by Migdalia Herndon (15:44 02/22/2017)]
--- NOTE | 2017-02-23 10:11 | ED DISCHARGE INSTRUCTIONS ---
Patient: ROLANDO GARBER General Instructions [facility] VisitID: [id number] [address] [place] [address] 36y, F Registration Date/Time: 02/22/2017 Recurrent lupus. INSTRUCTIONS (Get plaquenil today and start taking it.). Warnings: Further evaluation is necessary. SEDATIVE MEDICATION: You were given sedative medication during your visit. Do not drive or operate dangerous machinery. Your Current Medications: CONTINUE TAKING THE FOLLOWING MEDICATIONS: Rwrisfzbmt-IEAE-Hrze-Cod Oral. Gabapentin Oral. Naratriptan HCl Oral. Omeprazole Oral. Ranitidine HCl Oral. Zofran Oral. Prescription Medications: Oxycodone/APAP 5 mg/325 mg: take 1 tablet orally every 6 hours as needed for pain. Dispense fifteen (15). No refills. prednisone 50 mg a day for 2 days. Follow-up: Follow up with a specialist Stave Inspector as scheduled. Understanding of the discharge instructions verbalized by patient. (Electronically signed by Alan Alexander MD 02/23/2017 10:11)
--- NOTE | 2017-02-23 10:11 | ED MAR SUMMARY ---
..... Medication Administration Record [facility] [address] [place] [address] Patient: ROLANDO GARBER Visit ID: [id number] 36y, F Weight: 80.6 kg Height/Length: 63 in BMI: 31.5 ALLERGIES: Aspirin, Ibuprofen, Penicillin, Sulfa Antibiotics Given 14:51 02/22/2017 Migdalia Herndon, Medication Administered: SOLU-MEDROL [IVP] (METHYLPREDNISOLONE SODIUM SUCC), Dose: 80 mg IVP over 1 minute(s), Site: #1 right AC. Medication Ordered: Solu-MEDROL IV 80 mg (NOW). Given 15:42 02/22/2017 Migdalia Herndon, Medication Administered: OXYCODONE-APAP [PO] (OXYCODONE-ACETAMINOPHEN), Dose: 2 tab 10/650 mg Tablets PO. Medication Ordered: Oxycodone-APAP PO 10/650 mg (NOW).
--- NOTE | 2017-02-23 10:11 | ED DISCHARGE INSTRUCTIONS ---
Patient: ROLANDO GARBER General Instructions [facility] VisitID: [id number] [address] [place] [address] 36y, F Registration Date/Time: 02/22/2017 Recurrent lupus. INSTRUCTIONS (Get plaquenil today and start taking it.). Warnings: Further evaluation is necessary. SEDATIVE MEDICATION: You were given sedative medication during your visit. Do not drive or operate dangerous machinery. Your Current Medications: CONTINUE TAKING THE FOLLOWING MEDICATIONS: Swajihagga-YHUW-Ogza-Cod Oral. Gabapentin Oral. Naratriptan HCl Oral. Omeprazole Oral. Ranitidine HCl Oral. Zofran Oral. Prescription Medications: Oxycodone/APAP 5 mg/325 mg: take 1 tablet orally every 6 hours as needed for pain. Dispense fifteen (15). No refills. prednisone 50 mg a day for 2 days. 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 Understanding of the discharge instructions verbalized by patient. (Electronically signed by Alan Alexander MD 02/23/2017 10:11)
--- NOTE | 2017-02-23 10:11 | ED MAR SUMMARY ---
..... Medication Administration Record [facility] [address] [place] [address] Patient: ROLANDO GARBER Visit ID: [id number] 36y, F Weight: 80.6 kg Height/Length: 63 in BMI: 31.5 ALLERGIES: Aspirin, Ibuprofen, Penicillin, Sulfa Antibiotics Given 14:51 02/22/2017 Migdalia Herndon, Medication Administered: SOLU-MEDROL [IVP] (METHYLPREDNISOLONE SODIUM SUCC), Dose: 80 mg IVP over 1 minute(s), Site: #1 right AC. Medication Ordered: Solu-MEDROL IV 80 mg (NOW). Given 15:42 02/22/2017 Migdalia Herndon, Medication Administered: OXYCODONE-APAP [PO] (OXYCODONE-ACETAMINOPHEN), Dose: 2 tab 10/650 mg Tablets PO. Medication Ordered: Oxycodone-APAP PO 10/650 mg (NOW).
--- NOTE | 2017-02-23 10:11 | ED MED RECONCILIATION SUMMARY ---
Patient: ROLANDO GARBER Medication Reconciliation Report [facility] VisitID: [id number] [address] [place] [address] 36y, F Registration Date/Time: 02/22/2017 Weight: 80.6 kg Height/Length: 63 in. BMI: 31.5 ALLERGIES: Aspirin, Ibuprofen, Penicillin, Sulfa Antibiotics The patient's Home Medications are listed below: CONTINUE TAKING THE FOLLOWING MEDICATIONS: Cmixdacstc-BUCQ-Oyjp-Cod Oral Gabapentin Oral Naratriptan HCl Oral Omeprazole Oral Ranitidine HCl Oral Zofran Oral The source(s) of the original Home Medication information: Not obtained. The following Medications were given to the patient in the Emergency Department: SOLU-MEDROL [IVP] IVP 80 mg, administered: 02/22/2017 2:51:00 PM Oxycodone-APAP [PO] PO 2 tab, administered: 02/22/2017 3:42:00 PM The following Medications were prescribed to the patient: prednisone 50 mg a day for 2 days. -- Alan Alexander MD Oxycodone/APAP 5 mg/325 mg: take 1 tablet orally every 6 hours as needed for pain. Dispense fifteen (15). No refills. -- Alan Alexander MD
--- NOTE | 2017-02-23 10:11 | ED MED RECONCILIATION SUMMARY ---
Patient: ROLANDO GARBER Medication Reconciliation Report [facility] VisitID: [id number] [address] [place] [address] 36y, F Registration Date/Time: 02/22/2017 Weight: 80.6 kg Height/Length: 63 in. BMI: 31.5 ALLERGIES: Aspirin, Ibuprofen, Penicillin, Sulfa Antibiotics The patient's Home Medications are listed below: CONTINUE TAKING THE FOLLOWING MEDICATIONS: Qnbddskxtd-VWZI-Bwdc-Cod Oral Gabapentin Oral Naratriptan HCl Oral Omeprazole Oral Ranitidine HCl Oral Zofran Oral The source(s) of the original Home Medication information: Not obtained. The following Medications were given to the patient in the Emergency Department: SOLU-MEDROL [IVP] IVP 80 mg, administered: 02/22/2017 2:51:00 PM Oxycodone-APAP [PO] PO 2 tab, administered: 02/22/2017 3:42:00 PM The following Medications were prescribed to the patient: prednisone 50 mg a day for 2 days. -- Alan Alexander MD Oxycodone/APAP 5 mg/325 mg: take 1 tablet orally every 6 hours as needed for pain. Dispense fifteen (15). No refills. -- Alan Alexander MD
== END 2017-02-22 15:40 | disposition home or self-care (01) ==
LOC: ED SRH 11:03
DX: M32.9 Systemic lupus erythematosus, unspecified (principal); F17.210 Nicotine dependence, cigarettes, uncomplicated; Z90.710 Acquired absence of both cervix and uterus; Z88.0 Allergy status to penicillin; Z88.2 Allergy status to sulfonamides; Z88.6 Allergy status to analgesic agent; Z79.899 Other long term (current) drug therapy
CPT/HCPCS: 90074; 90100; 91320; 91556; 91585; 92610; 95059; 95150